=== PATIENT | female | born 1955 | race American Indian/Alaskan Native ===

== ENCOUNTER 2018-05-04 03:30 | Inpatient (IN) | payer MEDICARE, OTHER ==
--- NOTE | 2018-05-04 03:51 | Emergency Department Report ---
ED Altered Mental Status HPI - General Stated Complaint: HYPOGLYCEMIA Time Seen by Provider: 05/04/18 03:46 - History of Present Illness Initial Comments: 62-year-old female presents to ED from [facility] for altered mental status. senior living staff state approximately one hour prior to calling EMS and they were fighting with the patient to wear her CPAP. Finally they gave up and did not place patient on CPAP machine because she was so combative. They later found her laying on the floor, unresponsive. Upon EMS arrival, the patient had a blood sugar of 41, D50 was given. Patient was also bradycardic into the 40s, atropine 0.5 mg was given. Also Narcan was administered. Patient did awake somewhat. Currently combative with nurses, but remains lethargic. Cards: [facility] Cardiology Nephrology: Dr Shaniqua MEDINA Complaint: altered mental status -: This morning Severity: severe Treatments Prior to Arrival: glucose, other pre-hosp med (narcan, atropine) - Related Data Allergies Allergy/AdvReac Type Severity Reaction Status Date / Time ciprofloxacin [From Cipro] Allergy Unknown Verified 05/04/18 03:40 prazosin [From Minipress] Allergy Unknown Verified 05/04/18 03:40 ED Review of Systems ROS: Stated complaint: HYPOGLYCEMIA Other details as noted in HPI Comment: Unobtainable due to pts medical conditions (altered mental status) ED Physical Exam - General General appearance: lethargic - Head Head exam: Present: atraumatic, normocephalic - ENT ENT exam: Present: mucous membranes moist - Neck Neck exam: Present: normal inspection - Respiratory Respiratory exam: Present: normal lung sounds bilaterally. Absent: respiratory distress - Cardiovascular Cardiovascular Exam: Present: normal rhythm, bradycardia - GI/Abdominal GI/Abdominal exam: Present: soft. Absent: distended, tenderness - Extremities Exam Extremities exam: Present: normal inspection - Neurological Exam Neurological exam: Present: other (lethargic, awakens to painful stimuli an is then able to tell me her name, moves all extremities, does not fully follow commands) - Psychiatric Psychiatric exam: Present: agitated - Skin Skin exam: Present: warm, dry, intact, normal color ED Course Vital Signs 05/04/18 05/04/18 05/04/18 03:41 03:58 04:16 Temperature 98.5 F Pulse Rate 48 L 55 L Respiratory 20 10 L 14 Rate Blood Pressure 103/58 O2 Sat by Pulse 96 96 96 Oximetry 05/04/18 04:30 Temperature Pulse Rate 41 L Respiratory 24 Rate Blood Pressure O2 Sat by Pulse 100 Oximetry - Reevaluation(s) Reevaluation #1: 05/04/18 04:07 Daughter at bedside. States pt has history of multiple falls and passing out. Also states over the last week whenever she has visited pt at the skilled nursing, pt has been very lethargic, barely able to open her eyes. - Consultations Consultation #1: 05/04/18 06:53 Spoke w/ Dr Sims, Cardiology. States if blood pressure remains stable, then can observe. If blood pressure drops, will need to start dopamine. BP currently 118/70. - Lab Data Result diagrams: 05/04/18 04:07 05/04/18 04:07 Lab Results 05/04/18 05/04/18 05/04/18 Range/Units 04:01 04:07 04:07 WBC 5.9 (4.5-11.0) K/mm3 RBC 3.22 L (3.65-5.03) M/mm3 Hgb 9.4 L (10.1-14.3) gm/dl Hct 28.7 L (30.3-42.9) % MCV 89 (79-97) fl MCH 29 (28-32) pg MCHC 33 (30-34) % RDW 17.0 H (13.2-15.2) % Plt Count 230 (140-440) K/mm3 Add Manual Diff Complete Total Counted 100 Seg Neuts % (Manual) 77.0 H (40.0-70.0) % Band Neutrophils % 1.0 % Lymphocytes % (Manual) 19.0 (13.4-35.0) % Reactive Lymphs % (Man) 0 % Monocytes % (Manual) 3.0 (0.0-7.3) % Eosinophils % (Manual) 0 (0.0-4.3) % Basophils % (Manual) 0 (0.0-1.8) % Metamyelocytes % 0 % Myelocytes % 0 % Promyelocytes % 0 % Blast Cells % 0 % Nucleated RBC % Not Reportable Seg Neutrophils # Man 4.5 (1.8-7.7) K/mm3 Band Neutrophils # 0.1 K/mm3 Lymphocytes # (Manual) 1.1 L (1.2-5.4) K/mm3 Abs React Lymphs (Man) 0.0 K/mm3 Monocytes # (Manual) 0.2 (0.0-0.8) K/mm3 Eosinophils # (Manual) 0.0 (0.0-0.4) K/mm3 Basophils # (Manual) 0.0 (0.0-0.1) K/mm3 Metamyelocytes # 0.0 K/mm3 Myelocytes # 0.0 K/mm3 Promyelocytes # 0.0 K/mm3 Blast Cells # 0.0 K/mm3 WBC Morphology Not Reportable Hypersegmented Neuts Not Reportable Hyposegmented Neuts Not Reportable Hypogranular Neuts Not Reportable Smudge Cells Not Reportable Toxic Granulation Not Reportable Toxic Vacuolation Not Reportable Dohle Bodies Not Reportable Pelger-Huet Anomaly Not Reportable Manish Rods Not Reportable Platelet Estimate Appears normal Clumped Platelets Not Reportable Plt Clumps, EDTA Not Reportable Large Platelets Not Reportable Giant Platelets Not Reportable Platelet Satelliting Not Reportable Plt Morphology Comment Not Reportable RBC Morphology Not Reportable Dimorphic RBCs Not Reportable Polychromasia Not Reportable Hypochromasia Not Reportable Poikilocytosis Not Reportable Anisocytosis 1+ Microcytosis Not Reportable Macrocytosis Not Reportable Spherocytes Not Reportable Pappenheimer Bodies Not Reportable Sickle Cells Not Reportable Target Cells Not Reportable Tear Drop Cells Not Reportable Ovalocytes Not Reportable Helmet Cells Not Reportable Stanley-Landusky Bodies Not Reportable Chandler Rings Not Reportable [place] Cells Not Reportable Bite Cells Not Reportable Crenated Cell Not Reportable Elliptocytes Not Reportable Acanthocytes (Spur) Not Reportable Rouleaux Not Reportable Hemoglobin C Crystals Not Reportable Schistocytes Not Reportable Malaria parasites Not Reportable Margarito Bodies Not Reportable Hem Pathologist Commnt No PT 15.7 H (12.2-14.9) Sec. INR 1.17 H (0.87-1.13) APTT 38.2 H (24.2-36.6) Sec. POC ABG pH 7.320 L (7.35-7.45) POC ABG pCO2 55.4 H (35-45) POC ABG pO2 96 (80-105) POC ABG HCO3 28.5 POC ABG Total CO2 30 POC ABG O2 Sat 97 POC ABG Base Excess 2 FiO2 28 % Sodium (137-145) mmol/L Potassium (3.6-5.0) mmol/L Chloride (98-107) mmol/L Carbon Dioxide (22-30) mmol/L Anion Gap mmol/L BUN (7-17) mg/dL Creatinine (0.7-1.2) mg/dL Estimated GFR ml/min BUN/Creatinine Ratio % Glucose (65-100) mg/dL Lactic Acid (0.7-2.0) mmol/L Calcium (8.4-10.2) mg/dL Total Bilirubin (0.1-1.2) mg/dL AST (5-40) units/L ALT (7-56) units/L Alkaline Phosphatase (35-129) units/L Troponin T (0.00-0.029) ng/mL Total Protein (6.3-8.2) g/dL Albumin (3.9-5) g/dL Albumin/Globulin Ratio % Urine Color (Yellow) Urine Turbidity (Clear) Urine pH (5.0-7.0) Ur Specific [place] (1.003-1.030) Urine Protein (Negative) mg/dL Urine Glucose (UA) (Negative) mg/dL Urine Ketones (Negative) mg/dL Urine Blood (Negative) Urine Nitrite (Negative) Urine Bilirubin (Negative) Urine Urobilinogen (<2.0) mg/dL Ur Leukocyte Esterase (Negative) Urine WBC (Auto) (0.0-6.0) /HPF Urine RBC (Auto) (0.0-6.0) /HPF Urine Bacteria (Auto) (Negative) /HPF Urine WBC Clumps /HPF Amorphous Crystals Hyaline Casts /LPF Urine Mucus /HPF 05/04/18 05/04/18 05/04/18 Range/Units 04:07 04:07 04:09 WBC (4.5-11.0) K/mm3 RBC (3.65-5.03) M/mm3 Hgb (10.1-14.3) gm/dl Hct (30.3-42.9) % MCV (79-97) fl MCH (28-32) pg MCHC (30-34) % RDW (13.2-15.2) % Plt Count (140-440) K/mm3 Add Manual Diff Total Counted Seg Neuts % (Manual) (40.0-70.0) % Band Neutrophils % % Lymphocytes % (Manual) (13.4-35.0) % Reactive Lymphs % (Man) % Monocytes % (Manual) (0.0-7.3) % Eosinophils % (Manual) (0.0-4.3) % Basophils % (Manual) (0.0-1.8) % Metamyelocytes % % Myelocytes % % Promyelocytes % % Blast Cells % % Nucleated RBC % Seg Neutrophils # Man (1.8-7.7) K/mm3 Band Neutrophils # K/mm3 Lymphocytes # (Manual) (1.2-5.4) K/mm3 Abs React Lymphs (Man) K/mm3 Monocytes # (Manual) (0.0-0.8) K/mm3 Eosinophils # (Manual) (0.0-0.4) K/mm3 Basophils # (Manual) (0.0-0.1) K/mm3 Metamyelocytes # K/mm3 Myelocytes # K/mm3 Promyelocytes # K/mm3 Blast Cells # K/mm3 WBC Morphology Hypersegmented Neuts Hyposegmented Neuts Hypogranular Neuts Smudge Cells Toxic Granulation Toxic Vacuolation Dohle Bodies Pelger-Huet Anomaly Manish Rods Platelet Estimate Clumped Platelets Plt Clumps, EDTA Large Platelets Giant Platelets Platelet Satelliting Plt Morphology Comment RBC Morphology Dimorphic RBCs Polychromasia Hypochromasia Poikilocytosis Anisocytosis Microcytosis Macrocytosis Spherocytes Pappenheimer Bodies Sickle Cells Target Cells Tear Drop Cells Ovalocytes Helmet Cells Stanley-Landusky Bodies Chandler Rings [place] Cells Bite Cells Crenated Cell Elliptocytes Acanthocytes (Spur) Rouleaux Hemoglobin C Crystals Schistocytes Malaria parasites Margarito Bodies Hem Pathologist Commnt PT (12.2-14.9) Sec. INR (0.87-1.13) APTT (24.2-36.6) Sec. POC ABG pH (7.35-7.45) POC ABG pCO2 (35-45) POC ABG pO2 (80-105) POC ABG HCO3 POC ABG Total CO2 POC ABG O2 Sat POC ABG Base Excess FiO2 % Sodium 139 (137-145) mmol/L Potassium 4.9 (3.6-5.0) mmol/L Chloride 98.8 (98-107) mmol/L Carbon Dioxide 26 (22-30) mmol/L Anion Gap 19 mmol/L BUN 71 H (7-17) mg/dL Creatinine 4.3 H (0.7-1.2) mg/dL Estimated GFR 13 ml/min BUN/Creatinine Ratio 17 % Glucose 124 H (65-100) mg/dL Lactic Acid 1.00 (0.7-2.0) mmol/L Calcium 10.1 (8.4-10.2) mg/dL Total Bilirubin 0.20 (0.1-1.2) mg/dL AST 27 (5-40) units/L ALT 29 (7-56) units/L Alkaline Phosphatase 202 H (35-129) units/L Troponin T 0.093 H (0.00-0.029) ng/mL Total Protein 6.8 (6.3-8.2) g/dL Albumin 2.9 L (3.9-5) g/dL Albumin/Globulin Ratio 0.7 % Urine Color (Yellow) Urine Turbidity (Clear) Urine pH (5.0-7.0) Ur Specific [place] (1.003-1.030) Urine Protein (Negative) mg/dL Urine Glucose (UA) (Negative) mg/dL Urine Ketones (Negative) mg/dL Urine Blood (Negative) Urine Nitrite (Negative) Urine Bilirubin (Negative) Urine Urobilinogen (<2.0) mg/dL Ur Leukocyte Esterase (Negative) Urine WBC (Auto) (0.0-6.0) /HPF Urine RBC (Auto) (0.0-6.0) /HPF Urine Bacteria (Auto) (Negative) /HPF Urine WBC Clumps /HPF Amorphous Crystals Hyaline Casts /LPF Urine Mucus /HPF 05/04/18 05/04/18 05/04/18 Range/Units 05:21 05:50 05:50 WBC (4.5-11.0) K/mm3 RBC (3.65-5.03) M/mm3 Hgb (10.1-14.3) gm/dl Hct (30.3-42.9) % MCV (79-97) fl MCH (28-32) pg MCHC (30-34) % RDW (13.2-15.2) % Plt Count (140-440) K/mm3 Add Manual Diff Total Counted Seg Neuts % (Manual) (40.0-70.0) % Band Neutrophils % % Lymphocytes % (Manual) (13.4-35.0) % Reactive Lymphs % (Man) % Monocytes % (Manual) (0.0-7.3) % Eosinophils % (Manual) (0.0-4.3) % Basophils % (Manual) (0.0-1.8) % Metamyelocytes % % Myelocytes % % Promyelocytes % % Blast Cells % % Nucleated RBC % Seg Neutrophils # Man (1.8-7.7) K/mm3 Band Neutrophils # K/mm3 Lymphocytes # (Manual) (1.2-5.4) K/mm3 Abs React Lymphs (Man) K/mm3 Monocytes # (Manual) (0.0-0.8) K/mm3 Eosinophils # (Manual) (0.0-0.4) K/mm3 Basophils # (Manual) (0.0-0.1) K/mm3 Metamyelocytes # K/mm3 Myelocytes # K/mm3 Promyelocytes # K/mm3 Blast Cells # K/mm3 WBC Morphology Hypersegmented Neuts Hyposegmented Neuts Hypogranular Neuts Smudge Cells Toxic Granulation Toxic Vacuolation Dohle Bodies Pelger-Huet Anomaly Manish Rods Platelet Estimate Clumped Platelets Plt Clumps, EDTA Large Platelets Giant Platelets Platelet Satelliting Plt Morphology Comment RBC Morphology Dimorphic RBCs Polychromasia Hypochromasia Poikilocytosis Anisocytosis Microcytosis Macrocytosis Spherocytes Pappenheimer Bodies Sickle Cells Target Cells Tear Drop Cells Ovalocytes Helmet Cells Stanley-Landusky Bodies Chandler Rings [place] Cells Bite Cells Crenated Cell Elliptocytes Acanthocytes (Spur) Rouleaux Hemoglobin C Crystals Schistocytes Malaria parasites Margarito Bodies Hem Pathologist Commnt PT (12.2-14.9) Sec. INR (0.87-1.13) APTT (24.2-36.6) Sec. POC ABG pH (7.35-7.45) POC ABG pCO2 (35-45) POC ABG pO2 (80-105) POC ABG HCO3 POC ABG Total CO2 POC ABG O2 Sat POC ABG Base Excess FiO2 % Sodium (137-145) mmol/L Potassium (3.6-5.0) mmol/L Chloride (98-107) mmol/L Carbon Dioxide (22-30) mmol/L Anion Gap mmol/L BUN (7-17) mg/dL Creatinine (0.7-1.2) mg/dL Estimated GFR ml/min BUN/Creatinine Ratio % Glucose (65-100) mg/dL Lactic Acid 0.70 (0.7-2.0) mmol/L Calcium (8.4-10.2) mg/dL Total Bilirubin (0.1-1.2) mg/dL AST (5-40) units/L ALT (7-56) units/L Alkaline Phosphatase (35-129) units/L Troponin T 0.072 H D (0.00-0.029) ng/mL Total Protein (6.3-8.2) g/dL Albumin (3.9-5) g/dL Albumin/Globulin Ratio % Urine Color Yellow (Yellow) Urine Turbidity Cloudy (Clear) Urine pH 5.0 (5.0-7.0) Ur Specific [place] 1.009 (1.003-1.030) Urine Protein <15 mg/dl (Negative) mg/dL Urine Glucose (UA) Neg (Negative) mg/dL Urine Ketones Neg (Negative) mg/dL Urine Blood Neg (Negative) Urine Nitrite Neg (Negative) Urine Bilirubin Neg (Negative) Urine Urobilinogen < 2.0 (<2.0) mg/dL Ur Leukocyte Esterase Mod (Negative) Urine WBC (Auto) 64.0 H (0.0-6.0) /HPF Urine RBC (Auto) 5.0 (0.0-6.0) /HPF Urine Bacteria (Auto) 3+ (Negative) /HPF Urine WBC Clumps 2+ /HPF Amorphous Crystals 3+ Hyaline Casts 3 /LPF Urine Mucus Few /HPF - EKG Data -: EKG Interpreted by Ga EKG shows normal: sinus rhythm, ST-T waves Rate: normal Interpretation: other (LBBB, prolonged QT) - Radiology Data Radiology results: report reviewed, image reviewed - Medical Decision Making 62 yo female presents to ED with altered mental status. Patient is currently on BiPAP, remains sleepy, but is arousable with simple stimulus instead of painful stimuli, which was required when patient initially arrived. CT head negative. Labs show no elevation in WBCs. Patient is afebrile. Lactic acid normal. Chest x-ray shows possible right upper lobe infiltrate. Daughter reports patie nt has stage IV kidney disease, labs show BUN of 71, creatinine of 4.3. Possible acute on chronic renal failure. IV fluids given. Patient has been bradycardic with heart rate in the 40s, and atropine given and once by EMS, twice here in the ED. Daughter states patient has had episodes of bradycardia in the past when she has been hospitalized. EKG shows left bundle branch block and no ST changes. Troponin mildly elevated at 0.09, however this could also be due to the patient's renal function. Systolic blood pressure has been stable in the 110s despite bradycardia. - Differential Diagnosis CVA, CO2 narcosis, infection, ACS Critical Care Time: Yes Critical care time in (mins) excluding proc time.: 60 Critical care attestation.: If time is entered above; I have spent that time in minutes in the direct care of this critically ill patient, excluding procedure time. Critical Care Time: 60 minutes ED Disposition Clinical Impression: Altered mental status, Hypoglycemia, Bradycardia, UTI (urinary tract infection) Disposition: OP ADMIT IP TO THIS HOSP Is pt being admited?: Yes Condition: Stable Referrals: ROSALINA IRWIN MD [Primary Care Provider] - 3-5 Days
[2018-05-04] MEDS ORDERED: NACL 0.9% 1000 ML 1,000 ML IV ONE (03:59)
[2018-05-04] MEDS ORDERED: NARCAN 0.4 MG/1 ML IV ONE (04:06)
[2018-05-04] MEDS ORDERED: ATROPINE 0.1% (CARDIAC) IV ONE ×3 (04:06→06:40)
[2018-05-04] MEDS ORDERED: ATROPINE 0.1% (CARDIAC) ONE (04:10)
[2018-05-04] MEDS ORDERED: NARCAN 0.4 MG/1 ML ONE (04:10)
[2018-05-04 04:21] LABS: Hematocrit 28.7 % (30.3-42.9); Hemoglobin 9.4 gm/dl (10.1-14.3); Mean Corpuscular HGB Conc 33 % (30-34); Mean Corpuscular Volume 89 fl (79-97); Platelet Count 230 K/mm3 (140-440); Red Blood Count 3.22 M/mm3 (3.65-5.03)
[2018-05-04 04:33] LABS: INR 1.17 (0.87-1.13)
[2018-05-04 04:34] LABS: Partial Thromboplastin Time 38.2 Sec. (24.2-36.6)
[2018-05-04 04:44] LABS: Albumin 2.9 g/dL (3.9-5); Calcium 10.1 mg/dL (8.4-10.2)
--- NOTE | 2018-05-04 05:15 | Cat Scan Report ---
PROCEDURE: CT HEAD/BRAIN WO CON TECHNIQUE: Computerized tomography of the head was performed without contrast material. CT DOSE LENGTH PRODUCT: mGycm HISTORY: ams COMPARISONS: None . FINDINGS: Skull and scalp: There is an old left temporal craniotomy defect. . Paranasal sinuses: Normal . Ventricles and subarachnoid spaces: There is central and cortical atrophy appropriate for the patien t's age. . Cerebrum: There is an isodense rounded mass in the suprasellar region measuring 2.5 x 2 cm. This cou ld be a pituitary adenoma, a meningioma or other intracranial mass lesion. Aneurysm not excluded. Cor relation with contrast-enhanced MRI suggested. . Cerebellum and brainstem: No evidence of hemorrhage, acute infarction or mass . Vasculature: There is chronic deep white matter ischemic gliosis. . IMPRESSION: There is no acute hemorrhage, edema, mass effect or midline shift. . There is an old left temporal craniotomy defect. . There is central and cortical atrophy appropriate for the patient's age. . There is an isodense rounded mass in the suprasellar region measuring 2.5 x 2 cm. This could be a pit uitary adenoma, a meningioma or other intracranial mass lesion. Aneurysm not excluded. Correlation wi contrast-enhanced MRI suggested. . No evidence of hemorrhage, acute infarction or mass . There is chronic deep white matter ischemic gliosis. This document is electronically signed by Jose De Jesus Aldrich MD., May 04 2018 05:13:42 AM ET
--- NOTE | 2018-05-04 05:46 | XRay Report ---
PROCEDURE: XR CHEST 1V AP TECHNIQUE: A portable semiupright view of the chest was submitted. HISTORY: ams COMPARISONS: None FINDINGS: The heart is mild to moderately enlarged. The lungs are not congested. There are localized increased markings in the right upper lobe. Pleural fluid is not seen. The skeletal structures are well-maintai tawnya. IMPRESSION: Cardiomegaly. Localized increased markings in the right upper lobe. Whether this is on acute or chron ic basis is uncertain.. This document is electronically signed by Oscar Padilla MD., May 04 2018 05:43:40 AM ET
[2018-05-04 05:49] LABS: Amorphous Crystals,Urine 3+; Bacteria,Urine 3+ /HPF (Negative); Bilirubin,Urine NEG (Negative); Blood,Urine NEG (Negative); Color,Urine Yellow (Yellow); Hyaline Casts,Urine 3 /LPF; Mucus,Urine FEW /HPF; Protein,Urine <15 mg/dL mg/dL (Negative); Urobilinogen,Urine < 2.0 mg/dL (<2.0)
[2018-05-04] MEDS ORDERED: ROCEPHIN/NS 1 GM/50 ML 1 GM/50 ML BAG IV ONE (05:53)
[2018-05-04 06:22] LABS: Anisocytosis 1+; Band Neutrophils # (Manual) 0.1 K/mm3; Basophils % (Manual) 0 % (0.0-1.8); Eosinophils % (Manual) 0 % (0.0-4.3); Total Cells Counted 100
[2018-05-04 07:28] LABS: Chol/HDL Ratio 3.51 %
--- NOTE | 2018-05-04 08:47 | History and Physical Report ---
History of Present Illness Date of examination: 05/04/18 Date of admission: 05/04/18 06:05 Chief complaint: AMS History of present illness: Patient is a 62 year old woman from [facility] with h/o dilated nonischemic cardiomyopathy, pituitary tumor, diabetes mellitus type 2, hypertension, hyperlipidemia, chronic renal disease, was brought to the ER by EMS after she was found on the floor unresponsive. On EMS arrival she was said to be hypoglycemic with a blood sugar of 41. She was also noted with significant bradycardia, rate in the low 40s, and was given atropine. Home medications list she is taking carvediolol 12.5mg twice a day. A 12 lead ECG shows sinus rhythm with a left bundle branch block. Chest x-ray shows cardiomegaly with pulmonary edema. Head CT scan reports no acute intracranial process. Initial labs shows a creatinine of 4.3, TSH 9, elevated trop, and UA suggestive for UTI. Patient is getting admitted to ICU for further evaluation and management. Review of System: Unobtainable, due to altered mental status. Past History Past Medical History: diabetes, hypertension, hyperlipidemia, hypothyroidism, other (CKD, pituitary tumor) Past Surgical History: Other (multiple pituitary surgery, cardiac cath, lump removal) Social history: smoking (quit smoking at least 20 years ago), other (lives in a shelter). denies: alcohol abuse, IV drug use Family history: diabetes, hypertension Medications and Allergies Allergies Allergy/AdvReac Type Severity Reaction Status Date / Time ciprofloxacin [From Cipro] Allergy Unknown Verified 05/04/18 03:40 prazosin [From Minipress] Allergy Unknown Verified 05/04/18 03:40 Home Medications Medication Instructions Recorded Confirmed Last Taken Type Ascorbic Acid [Vitamin C] 500 mg PO DAILY 05/04/18 05/04/18 Unknown History Aspirin [Aspirin BABY CHEW TAB] 81 mg PO QDAY 05/04/18 05/04/18 Unknown History AtorvaSTATin [Lipitor] 20 mg PO QHS 05/04/18 05/04/18 Unknown History Calcitriol [Rocaltrol] 0.25 mcg PO DAILY 05/04/18 05/04/18 Unknown History Carvedilol [Coreg] 12.5 mg PO BIDWM 05/04/18 05/04/18 Unknown History Citalopram Hydrobromide [Celexa] 40 mg PO QDAY 05/04/18 05/04/18 Unknown History Ergocalciferol [Vitamin D2] 1 cap PO QWEEK 05/04/18 05/04/18 Unknown History Ferrous Sulfate [Iron] 325 mg PO QAM 05/04/18 05/04/18 Unknown History Folic Acid [Folvite] 1 mg PO QDAY 05/04/18 05/04/18 Unknown History Furosemide [Lasix] 60 mg PO BID 05/04/18 05/04/18 Unknown History Hydrocortisone [Cortef TAB] 20 mg PO DAILY 05/04/18 05/04/18 Unknown History Lispro Insulin [Humalog] 1 dose SUB-Q ACHS 05/04/18 05/04/18 Unknown History Multivitamin Tab W-MINERAL 1 each PO DAILY 05/04/18 05/04/18 Unknown History [Multiple Vitamin/Mineral (Theragran M)] OLANZapine [Zyprexa] 5 mg PO QPM 05/04/18 05/04/18 Unknown History OLANzapine ZYDIS [ZyPREXA Zydis] 5 mg PO DAILY 05/04/18 05/04/18 Unknown History Potassium Chloride [Klor-Con 10] 20 meq PO QDAY 05/04/18 05/04/18 Unknown History Quetiapine Fumarate [Seroquel] 300 mg PO QPM 05/04/18 05/04/18 Unknown History amLODIPine [Norvasc] 10 mg PO DAILY 05/04/18 05/04/18 Unknown History glipiZIDE [Glipizide] 5 mg PO BID 05/04/18 05/04/18 Unknown History traZODone [Desyrel] 50 mg PO QHS 05/04/18 05/04/18 Unknown History Active Meds: Active Medications Aspirin (Aspirin) 325 mg PO QDAY [facility] Atorvastatin Calcium (Lipitor) 40 mg PO QHS [facility] Exam - Physical Exam Narrative exam: GENERAL: well-developed obese female lying on bed with a Ventimask. HEENT: Normocephalic. Atraumatic. No conjunctival congestion or icterus. Patient has dry mucous membranes. NECK: Supple. Trachea midline. CHEST/LUNGS: Clear to auscultated bilaterally, breathing nonlabored on Ventima sk. No wheezes crackles or rhonchi. HEART/CARDIOVASCULAR: Bradycardic. S1 and S2 positive. ABDOMEN: Abdomen is soft, nontender. Patient has normal bowel sounds. SKIN: There is no rash. Warm and dry. NEURO: Unable to Follow command. Very lethargic MUSCULOSKELETAL: No joint effusion or tenderness. EXTRIMITY: No edema, no cyanosis or clubbing. PSYCH: Unable to assess - Constitutional Vitals: Temp Pulse Resp BP Pulse Ox 98.2 F 41 L 12 118/72 97 05/04/18 08:39 05/04/18 08:30 05/04/18 08:30 05/04/18 08:30 05/04/18 08:30 Results - Labs CBC & Chem 7: 05/04/18 04:07 05/04/18 04:07 Labs: Abnormal lab results 05/04/18 05/04/18 05/04/18 Range/Units 04:01 04:07 04:07 RBC 3.22 L (3.65-5.03) M/mm3 Hgb 9.4 L (10.1-14.3) gm/dl Hct 28.7 L (30.3-42.9) % RDW 17.0 H (13.2-15.2) % Seg Neuts % (Manual) 77.0 H (40.0-70.0) % Lymphocytes # (Manual) 1.1 L (1.2-5.4) K/mm3 PT 15.7 H (12.2-14.9) Sec. INR 1.17 H (0.87-1.13) APTT 38.2 H (24.2-36.6) Sec. POC ABG pH 7.320 L (7.35-7.45) POC ABG pCO2 55.4 H (35-45) BUN (7-17) mg/dL Creatinine (0.7-1.2) mg/dL Glucose (65-100) mg/dL Alkaline Phosphatase (35-129) units/L Troponin T (0.00-0.029) ng/mL Albumin (3.9-5) g/dL HDL Cholesterol (40-59) mg/dL Urine WBC (Auto) (0.0-6.0) /HPF 05/04/18 05/04/18 05/04/18 Range/Units 04:07 04:07 05:21 RBC (3.65-5.03) M/mm3 Hgb (10.1-14.3) gm/dl Hct (30.3-42.9) % RDW (13.2-15.2) % Seg Neuts % (Manual) (40.0-70.0) % Lymphocytes # (Manual) (1.2-5.4) K/mm3 PT (12.2-14.9) Sec. INR (0.87-1.13) APTT (24.2-36.6) Sec. POC ABG pH (7.35-7.45) POC ABG pCO2 (35-45) BUN 71 H (7-17) mg/dL Creatinine 4.3 H (0.7-1.2) mg/dL Glucose 124 H (65-100) mg/dL Alkaline Phosphatase 202 H (35-129) units/L Troponin T 0.093 H (0.00-0.029) ng/mL Albumin 2.9 L (3.9-5) g/dL HDL Cholesterol (40-59) mg/dL Urine WBC (Auto) 64.0 H (0.0-6.0) /HPF // Range/Units 05:50 RBC (3.65-5.03) M/mm3 Hgb (10.1-14.3) gm/dl Hct (30.3-42.9) % RDW (13.2-15.2) % Seg Neuts % (Manual) (40.0-70.0) % Lymphocytes # (Manual) (1.2-5.4) K/mm3 PT (12.2-14.9) Sec. INR (0.87-1.13) APTT (24.2-36.6) Sec. POC ABG pH (7.35-7.45) POC ABG pCO2 (35-45) BUN (7-17) mg/dL Creatinine (0.7-1.2) mg/dL Glucose (65-100) mg/dL Alkaline Phosphatase (35-129) units/L Troponin T 0.072 H D (0.00-0.029) ng/mL Albumin (3.9-5) g/dL HDL Cholesterol 33 L (40-59) mg/dL Urine WBC (Auto) (0.0-6.0) /HPF - Imaging and Cardiology Chest x-ray: report reviewed CT Scan - head: report reviewed Assessment and Plan Aletered mental status - reason for admission - likley from hypoglycemia Sinus bradycardia, hemodynamically stable - no need for intervention, per cardiology - hold BB and non-dihydropyridine CCB (patient was on coreg at the [facility]) - Check TSH, T4, Continue to monitor on tele Severe hypothyroidosm - start on iv synthroid with steroid dose Recurrent episodes of syncope - Patient has a loop recorder for that reason Pituitary tumor s/p multiple brain surgery and radiation therapy - CT head Acute on chronic renal failure - monitor BMP UTI with sepsis - + UA with worsening renal function and alteration of mental status - cont abx, cx Elevated troponin/NSTEMI 2 ?? - trens trop, 2d echo - cont aspirin, statin -Cardiology consulted
[2018-05-04] MEDS ORDERED: D5NS 1,000 ML IV SCH (09:00)
--- NOTE | 2018-05-04 09:27 | Consultation ---
History of Present Illness Consult date: 05/04/18 Requesting physician: JOSIE SIERRA History of present illness: Patient is a 62 year old woman from [facility] with h/o dilated nonischemic cardiomyopathy, pituitary tumor, diabetes mellitus type 2, hypertension, hyperlipidemia, chronic renal disease, was brought to the ER by EMS after she was found on the floor unresponsive. On EMS arrival she was said to be hypoglycemic with a blood sugar of 41. She was also noted with significant br adycardia, rate in the low 40s, and was given atropine. Home medications list she is taking carvediolol 12.5mg twice a day. A 12 lead ECG shows sinus rhythm with a left bundle branch block. Chest x-ray shows cardiomegaly with pulmonary edema. Head CT scan reports no acute intracranial process. Initial labs shows a creatinine of 4.3, TSH 9, elevated trop, and UA suggestive for UTI. Patient is getting admitted to ICU for further evaluation and management. I have been consulted for critical care management. Documented history as obtained from the medical records, patient is encephaloapthic and unable to provide any information. She is currently on BIPAP, IPAP 16, EPAP 6, with tidal volumes at about 250, discussed with RT readjustment of settings to allow for tidal volumes of at least 350 and minute ventilation of 11. Patient was seen and examined in the ED. Vitals, labs, medications, chart and imaging reviewed. Discussed with ED physician and auto washer of System: Unobtainable, due to altered mental status. Past History Past Medical History: diabetes, hypertension, hyperlipidemia, hypothyroidism, other (CKD, pituitary tumor) Past Surgical History: Other (multiple pituitary surgery, cardiac cath, lump removal) Social history: smoking (quit smoking at least 20 years ago), other (lives in a retirement). denies: alcohol abuse, IV drug use Family history: diabetes, hypertension Medications and Allergies Allergies Allergy/AdvReac Type Severity Reaction Status Date / Time ciprofloxacin [From Cipro] Allergy Unknown Verified 05/04/18 03:40 prazosin [From Minipress] Allergy Unknown Verified 05/04/18 03:40 Home Medications Medication Instructions Recorded Confirmed Last Taken Type Ascorbic Acid [Vitamin C] 500 mg PO DAILY 05/04/18 05/04/18 Unknown History Aspirin [Aspirin BABY CHEW TAB] 81 mg PO QDAY 05/04/18 05/04/18 Unknown History AtorvaSTATin [Lipitor] 20 mg PO QHS 05/04/18 05/04/18 Unknown History Calcitriol [Rocaltrol] 0.25 mcg PO DAILY 05/04/18 05/04/18 Unknown History Citalopram Hydrobromide [Celexa] 40 mg PO QDAY 05/04/18 05/04/18 Unknown History Ergocalciferol [Vitamin D2] 1 cap PO QWEEK 05/04/18 05/04/18 Unknown History Ferrous Sulfate [Iron] 325 mg PO QAM 05/04/18 05/04/18 Unknown History Folic Acid [Folvite] 1 mg PO QDAY 05/04/18 05/04/18 Unknown History Hydrocortisone [Cortef TAB] 20 mg PO DAILY 05/04/18 05/04/18 Unknown History Multivitamin Tab W-MINERAL 1 each PO DAILY 05/04/18 05/04/18 Unknown History [Multiple Vitamin/Mineral (Theragran M)] OLANZapine [Zyprexa] 5 mg PO QPM 05/04/18 05/04/18 Unknown History Quetiapine Fumarate [Seroquel] 300 mg PO QPM 05/04/18 05/04/18 Unknown History Amoxicillin/Potassium Clav 1 each PO BID #6 tablet 05/07/18 Unknown Rx [Augmentin 875-125 Tablet] Levothyroxine [Synthroid] 75 mcg PO DAILY@0600 #30 tablet 05/07/18 Unknown Rx Lispro Insulin [Humalog] See Protocol SQ QACHS 30 Days vial 05/07/18 Unknown Rx Lispro Insulin [Humalog] See Protocol SUB-Q ACHS #30 units 05/07/18 Unknown Rx Active Meds: Active Medications Aspirin (Aspirin) 325 mg PO QDAY [facility] Atorvastatin Calcium (Lipitor) 40 mg PO QHS [facility] Dextrose/Sodium Chloride (D5ns) 1,000 mls @ 75 mls/hr IV DIRECT [facility] Review of Systems ROS unobtainable: due to mental status Physical Examination Vital signs: Vital Signs Pulse Resp 142 H 12 05/04/18 03:28 05/04/18 03:28 GENERAL: well-developed obese female lying on bed on BIPAP HEENT: Normocephalic. Atraumatic. No conjunctival congestion or icterus. NIGEL NECK: Supple. Trachea midline. CHEST/LUNGS: Clear to auscultated bilaterally, breathing non labored on BIPAPNo wheezes crackles or rhonchi. HEART/CARDIOVASCULAR: Bradycardic. S1 and S2 positive. ABDOMEN: Abdomen is soft, nontender. Patient has normal bowel sounds. SKIN: There is no rash. Warm and dry. NEURO: Unable to follow command. Very lethargic Minimally responsive to painful stimuli MUSCULOSKELETAL: No joint effusion or tenderness. EXTRIMITY: No edema, no cyanosis or clubbing. PSYCH: Unable to assess Results - Laboratory Findings CBC and BMP: 05/07/18 13:31 05/07/18 13:31 ABG POC ABG pH 7.320 (7.35-7.45) L 05/04/18 04:01 POC ABG pCO2 55.4 (35-45) H 05/04/18 04:01 POC ABG pO2 96 (80-105) 05/04/18 04:01 POC ABG HCO3 28.5 05/04/18 04:01 POC ABG Total CO2 30 05/04/18 04:01 POC ABG O2 Sat 97 05/04/18 04:01 PT/INR, D-dimer PT 15.7 Sec. (12.2-14.9) H 05/04/18 04:07 INR 1.17 (0.87-1.13) H 05/04/18 04:07 Abnormal lab findings: Abnormal Labs 05/04/18 05/04/18 05/04/18 04:01 04:07 04:07 RBC 3.22 L Hgb 9.4 L Hct 28.7 L RDW 17.0 H Seg Neuts % (Manual) 77.0 H Lymphocytes # (Manual) 1.1 L PT 15.7 H INR 1.17 H APTT 38.2 H POC ABG pH 7.320 L POC ABG pCO2 55.4 H BUN Creatinine Glucose Alkaline Phosphatase Troponin T Albumin HDL Cholesterol Urine WBC (Auto) 05/04/18 05/04/18 05/04/18 04:07 04:07 05:21 RBC Hgb Hct RDW Seg Neuts % (Manual) Lymphocytes # (Manual) PT INR APTT POC ABG pH POC ABG pCO2 BUN 71 H Creatinine 4.3 H Glucose 124 H Alkaline Phosphatase 202 H Troponin T 0.093 H Albumin 2.9 L HDL Cholesterol Urine WBC (Auto) 64.0 H 05/04/18 05:50 RBC Hgb Hct RDW Seg Neuts % (Manual) Lymphocytes # (Manual) PT INR APTT POC ABG pH POC ABG pCO2 BUN Creatinine Glucose Alkaline Phosphatase Troponin T 0.072 H D Albumin HDL Cholesterol 33 L Urine WBC (Auto) Assessment and Plan Acute hypercapnic respiratory failure on NIPPV Altered mental status Sinus bradycardia Severe hypothyroidism Hypoglycemia, severe Recurrent episodes of syncope Pituitary tumor s/p multiple brain surgery and radiation therapy Acute on chronic renal failure UTI with sepsis Elevated serum troponin -Admit ICU -BIPAP, adjust setting for better minute ventilation and gas-exchange -Follow up ABGs in 2 hours -Give IV hydrocotisone and IV synthroid for replacement therapy - continue supplemental oxygen as needed to keep O2 sats 88-90% -Aspiration precautions -Accuchecks and correct hypoglycemia -NPO for now -Antibiotics for UTI, follow up TOM and culture results and adjust antibiotic therapy -VTE prophylaxis -Stress ulcer prophylaxis -Address nutrition in the next 24 hours CONDITION: CRITICAL PROGNOSIS: GUARDED CODE STATUS: FULL CODE The high probability of a clinically significant, sudden or life threatening deterioration of multiple system(s) required my full and direct attention, intervention and personal management. The aggregate critical care time was [35] minutes. This time is in addition to time spent performing reported procedures but includes the following: [x] Data Review and interpretation [x] Patient assessment and monitoring of vital signs [x] Documentation [x] Medication orders and management
[2018-05-04] MEDS: ASPIRIN PO SCH (10:24)
--- NOTE | 2018-05-04 11:29 | Consultation ---
History of Present Illness Consult date: 05/04/18 Consult reason: bradycardia History of present illness: Patient is a 62 year old woman who resides in a [facility] with multiple medical problems. Daughter at bedside gives a history of syncope and she has an indwelling loop recorder which is followed by [facility]. She has a history of dilated nonischemic cardiomyopathy. There is no history of coronary artery disease. Daughter states several years ago the patient underwent a cardiac cath with reports of no significant coronary disease. She has a history of multiple pituitary tumors and has poor vision and short term memory post surgery and radiation therapy. Co-morbidities includes chronic renal disease, hypertension and diabetes. EMS was called after she was found on the floor unresponsive. On EMS arrival she was said to be hypoglycemic with a blood sugar of 41. She was also noted with significant bradycardia, rate in the low 40s, and was given atropine. Home med ications list she is taking carvediolol 12.5mg twice a day. A 12 lead ECG shows sinus rhythm with a left bundle branch block. Chest x-ray shows cardiomegaly with pulmonary edema. Head CT scan reports no acute intracranial process. Initial labs shows a creatinine of 4.3 Medications and Allergies Allergies Allergy/AdvReac Type Severity Reaction Status Date / Time ciprofloxacin [From Cipro] Allergy Unknown Verified 05/04/18 03:40 prazosin [From Minipress] Allergy Unknown Verified 05/04/18 03:40 Home Medications Medication Instructions Recorded Confirmed Last Taken Type Ascorbic Acid [Vitamin C] 500 mg PO DAILY 05/04/18 05/04/18 Unknown History Aspirin [Aspirin BABY CHEW TAB] 81 mg PO QDAY 05/04/18 05/04/18 Unknown History AtorvaSTATin [Lipitor] 20 mg PO QHS 05/04/18 05/04/18 Unknown History Calcitriol [Rocaltrol] 0.25 mcg PO DAILY 05/04/18 05/04/18 Unknown History Carvedilol [Coreg] 12.5 mg PO BIDWM 05/04/18 05/04/18 Unknown History Citalopram Hydrobromide [Celexa] 40 mg PO QDAY 05/04/18 05/04/18 Unknown History Ergocalciferol [Vitamin D2] 1 cap PO QWEEK 05/04/18 05/04/18 Unknown History Ferrous Sulfate [Iron] 325 mg PO QAM 05/04/18 05/04/18 Unknown History Folic Acid [Folvite] 1 mg PO QDAY 05/04/18 05/04/18 Unknown History Furosemide [Lasix] 60 mg PO BID 05/04/18 05/04/18 Unknown History Hydrocortisone [Cortef TAB] 20 mg PO DAILY 05/04/18 05/04/18 Unknown History Lispro Insulin [Humalog] 1 dose SUB-Q ACHS 05/04/18 05/04/18 Unknown History Multivitamin Tab W-MINERAL 1 each PO DAILY 05/04/18 05/04/18 Unknown History [Multiple Vitamin/Mineral (Theragran M)] OLANZapine [Zyprexa] 5 mg PO QPM 05/04/18 05/04/18 Unknown History OLANzapine ZYDIS [ZyPREXA Zydis] 5 mg PO DAILY 05/04/18 05/04/18 Unknown History Potassium Chloride [Klor-Con 10] 20 meq PO QDAY 05/04/18 05/04/18 Unknown History Quetiapine Fumarate [Seroquel] 300 mg PO QPM 05/04/18 05/04/18 Unknown History amLODIPine [Norvasc] 10 mg PO DAILY 05/04/18 05/04/18 Unknown History glipiZIDE [Glipizide] 5 mg PO BID 05/04/18 05/04/18 Unknown History traZODone [Desyrel] 50 mg PO QHS 05/04/18 05/04/18 Unknown History Active Meds: Active Medications Aspirin (Aspirin) 325 mg PO QDAY [facility] Last Admin: 05/04/18 10:24 Dose: Not Given Documented by: Atorvastatin Calcium (Lipitor) 40 mg PO QHS [facility] Dextrose/Sodium Chloride (D5ns) 1,000 mls @ 75 mls/hr IV DIRECT [facility] Last Admin: 05/04/18 10:15 Dose: 75 mls/hr Documented by: Physical Examination Vital Signs Pulse Resp 142 H 12 05/04/18 03:28 05/04/18 03:28 General appearance: obese, other (on bipap) Cardiac: Positive: Bradycardia Results 05/04/18 04:07 05/04/18 04:07 Cardiac Enzymes 05/04/18 Range/Units 04:07 AST 27 (5-40) units/L Coagulation 05/04/18 Range/Units 04:07 PT 15.7 H (12.2-14.9) Sec. INR 1.17 H (0.87-1.13) APTT 38.2 H (24.2-36.6) Sec. Lipids 05/04/18 Range/Units 05:50 Triglycerides 58 (2-149) mg/dL Cholesterol 116 (50-199) mg/dL HDL Cholesterol 33 L (40-59) mg/dL Cholesterol/HDL Ratio 3.51 % CBC 05/04/18 Range/Units 04:07 WBC 5.9 (4.5-11.0) K/mm3 RBC 3.22 L (3.65-5.03) M/mm3 Hgb 9.4 L (10.1-14.3) gm/dl Hct 28.7 L (30.3-42.9) % Plt Count 230 (140-440) K/mm3 Comprehensive Metabolic Panel 05/04/18 Range/Units 04:07 Sodium 139 (137-145) mmol/L Potassium 4.9 (3.6-5.0) mmol/L Chloride 98.8 (98-107) mmol/L Carbon Dioxide 26 (22-30) mmol/L BUN 71 H (7-17) mg/dL Creatinine 4.3 H (0.7-1.2) mg/dL Glucose 124 H (65-100) mg/dL Calcium 10.1 (8.4-10.2) mg/dL AST 27 (5-40) units/L ALT 29 (7-56) units/L Alkaline Phosphatase 202 H (35-129) units/L Total Protein 6.8 (6.3-8.2) g/dL Albumin 2.9 L (3.9-5) g/dL Assessment and Plan Altered mental status Pulmonary edema Hypoglycemia -resolved Sinus bradycardia beta blockers held Hx of Syncope s/p loop recorder Hypertension Hx of pituitary tumors s/p craniotomy and radiation therapy Check a TSH and magnesium. Continue to hold beta blockers. Echocardiogram for LVEF assessment.
[2018-05-04 12:10] LABS: Amphetamine Screen,Urine PRESUMPTIVE NEGATIVE; Benzodiazepines Screen,Urine PRESUMPTIVE NEGATIVE; Cannabinoid Screen,Urine PRESUMPTIVE NEGATIVE; Cocaine Screen,Urine PRESUMPTIVE NEGATIVE; Methadone Screen,Urine PRESUMPTIVE NEGATIVE; Opiate Screen,Urine PRESUMPTIVE NEGATIVE
[2018-05-04] MEDS: SYNTHROID IV SCH (15:00)
[2018-05-04] MEDS ORDERED: SOLU-Medrol IV ONE (16:08)
[2018-05-04] MEDS ORDERED: MAXIPIME/NS 1 GM/100 ML 1 GM/100 ML BAG IV SCH ×2 (18:00→22:00)
[2018-05-04] MEDS: MAXIPIME/NS 1 GM/100 ML 1 GM/100 ML BAG IV SCH (20:12)
[2018-05-05] MEDS: SYNTHROID IV SCH (06:15)
[2018-05-05] MEDS: MAXIPIME/NS 1 GM/100 ML 1 GM/100 ML BAG IV SCH (07:19)
[2018-05-05] MEDS: FOLVITE PO SCH (10:38)
[2018-05-05] MEDS: ASPIRIN PO SCH (10:38)
[2018-05-05] MEDS: FEOSOL PO SCH (10:38)
--- NOTE | 2018-05-05 11:43 | Progress Note ---
Assessment and Plan Altered mental status -resolved UTI Hypoglycemia -resolved Hypothyroidism TSH 9.0 Sinus bradycardia -resolved coreg discontinued Hx of recurrent Syncope s/p loop recorder Hypertension Hx of pituitary tumors s/p multiple brain surgery and radiation therapy Chronic renal failure Echocardiogram reports a mildly decrease left ventricular systolic function, EF 45-50%. Subjective Date of service: 05/05/18 Interval history: Patient awake, alert and appears comfortable. She denies chest pain and shortness of breath. Stable sinus rhythm on telemetry. Objective Vital Signs Temp Pulse Pulse Resp BP Pulse Ox 05/05/18 11:30 79 10 L 106/74 94 05/05/18 11:20 80 21 106/74 95 05/05/18 11:10 83 17 106/74 94 05/05/18 11:00 82 19 106/74 96 05/05/18 10:50 85 15 106/74 95 05/05/18 10:40 91 H 16 106/74 91 05/05/18 10:30 84 12 106/74 91 05/05/18 10:20 84 12 106/74 92 05/05/18 10:10 83 10 L 106/74 93 05/05/18 10:00 87 11 L 106/74 94 05/05/18 09:50 85 12 120/81 95 05/05/18 09:40 96 H 17 120/81 93 05/05/18 09:30 85 13 120/81 94 05/05/18 09:20 88 13 120/81 93 05/05/18 09:10 89 12 120/81 94 05/05/18 09:00 92 H 14 120/81 92 05/05/18 08:50 86 15 126/79 90 05/05/18 08:40 81 16 126/79 91 05/05/18 08:30 84 14 126/79 90 05/05/18 08:24 91 05/05/18 08:20 85 15 126/79 90 05/05/18 08:10 84 15 126/79 90 05/05/18 08:00 83 15 126/79 91 05/05/18 07:50 84 13 119/82 91 05/05/18 07:40 87 9 L 119/82 97 05/05/18 07:30 86 17 119/82 92 05/05/18 07:20 82 16 119/82 92 03/06/19 07:10 85 17 119/82 91 05/05/18 07:00 82 14 119/82 91 05/05/18 06:50 82 15 125/81 93 05/05/18 06:40 79 16 125/81 93 05/05/18 06:30 85 16 125/81 92 05/05/18 06:20 83 12 125/81 93 05/05/18 06:10 85 14 125/81 92 05/05/18 06:00 82 19 146/69 94 05/05/18 05:50 87 17 146/69 93 05/05/18 05:40 85 14 146/69 92 05/05/18 05:30 79 16 146/69 97 05/05/18 05:20 84 16 146/69 97 05/05/18 05:10 83 12 146/69 94 05/05/18 05:00 87 17 146/69 93 05/05/18 04:50 63 14 141/62 97 05/05/18 04:40 82 11 L 141/62 93 05/05/18 04:30 79 13 141/62 95 05/05/18 04:20 80 10 L 141/62 97 05/05/18 04:10 79 13 141/62 94 05/05/18 04:00 70 13 141/62 98 05/05/18 03:50 78 14 142/88 94 05/05/18 03:40 77 11 L 142/88 94 05/05/18 03:30 73 13 142/88 97 05/05/18 03:20 79 13 142/88 93 05/05/18 03:19 96.1 F L 75 14 95 05/05/18 03:10 63 12 142/88 96 06 03:00 81 20 118/68 96 05/05/18 02:50 77 12 118/68 93 06 02:40 76 13 118/68 97 06 02:30 69 13 118/68 96 05/05/18 02:20 65 11 L 118/68 98 06 02:10 70 10 L 118/68 93 05/05/18 02:00 75 11 L 118/68 93 06 01:50 59 L 13 121/76 97 06 01:40 67 11 L 121/76 93 03/06/19 01:30 74 13 121/76 95 05/05/18 01:20 69 12 121/76 97 05/05/18 01:11 20 95 05/05/18 01:10 70 14 121/76 95 05/05/18 01:00 68 11 L 121/76 98 05/05/18 00:50 73 13 128/72 97 05/05/18 00:40 70 14 128/72 97 05/05/18 00:30 68 14 128/72 97 05/05/18 00:20 69 11 L 128/72 97 05/05/18 00:10 68 12 128/72 99 05/05/18 00:00 93.6 F L 68 60 8 L 138/85 100 05/04/18 23:50 70 14 138/85 99 05/04/18 23:45 68 25 H 138/85 100 05/04/18 23:40 51 L 12 97 05/04/18 23:30 70 13 138/85 98 05/04/18 23:20 72 12 138/85 95 05/04/18 23:10 45 L 12 144/73 95 05/04/18 23:00 67 9 L 138/85 98 05/04/18 22:50 47 L 12 144/73 94 05/04/18 22:40 56 L 13 144/73 97 05/04/18 22:35 66 13 144/73 97 05/04/18 22:30 45 L 14 144/73 91 05/04/18 22:20 62 15 144/73 96 05/04/18 22:10 61 14 144/73 93 05/04/18 22:00 44 L 13 144/76 95 05/04/18 21:50 62 15 144/76 05/04/18 21:40 47 L 13 144/76 95 05/04/18 21:30 66 13 144/76 96 05/04/18 21:20 50 L 12 144/76 96 05/04/18 21:10 62 12 144/76 97 05/04/18 21:00 46 L 14 136/86 95 05/04/18 20:50 46 L 14 136/86 97 05/04/18 20:40 63 17 136/86 96 05/04/18 20:30 56 L 15 136/86 97 05/04/18 20:20 46 L 13 136/86 97 05/04/18 20:10 49 L 13 136/86 96 05/04/18 20:00 58 L 49 L 8 L 136/86 94 05/04/18 19:50 51 L 12 134/77 96 05/04/18 19:40 58 L 11 L 134/77 96 05/04/18 19:36 98 05/04/18 19:30 55 L 12 134/77 98 05/04/18 19:20 54 L 14 134/77 98 05/04/18 19:10 55 L 15 134/77 96 05/04/18 19:00 45 L 16 134/77 98 05/04/18 18:50 60 21 126/71 97 05/04/18 18:40 49 L 10 L 126/71 99 05/04/18 18:30 44 L 10 L 126/71 98 05/04/18 18:20 56 L 12 126/71 98 05/04/18 18:10 57 L 14 126/71 99 05/04/18 18:00 47 L 53 L 16 126/71 98 05/04/18 17:50 53 L 11 L 119/80 97 05/04/18 17:40 46 L 10 L 119/80 97 05/04/18 17:30 51 L 10 L 119/80 97 05/04/18 17:20 58 L 14 119/80 98 05/04/18 17:10 54 L 12 119/80 98 05/04/18 17:00 55 L 11 L 119/80 99 05/04/18 16:50 56 L 11 L 121/78 100 05/04/18 16:40 47 L 13 121/78 100 05/04/18 16:30 54 L 11 L 121/78 100 05/04/18 16:20 56 L 10 L 121/78 99 05/04/18 16:10 46 L 10 L 121/78 100 05/04/18 16:00 55 L 60 13 121/78 99 05/04/18 15:50 55 L 14 124/73 99 05/04/18 15:40 55 L 11 L 124/73 100 05/04/18 15:30 49 L 10 L 124/73 100 05/04/18 15:20 66 15 124/73 97 05/04/18 15:10 52 L 13 124/73 100 05/04/18 15:00 50 L 12 124/73 99 05/04/18 14:50 52 L 13 114/80 100 05/04/18 14:49 50 L 16 100 05/04/18 14:40 53 L 13 114/80 100 05/04/18 14:30 51 L 12 114/80 98 05/04/18 12:30 43 L 19 - Physical Examination General: No Apparent Distress Cardiac: Positive: Reg Rate and Rhythm
--- NOTE | 2018-05-05 12:04 | Consultation ---
History of Present Illness - Reason for Consult Consult date: 05/05/18 acute renal failure, chronic renal failure Requesting physician: JOSIE SIERRA - History of Present Illness This is a 62 yo F [place] [facility] with past medical history of Hypertension, Type 2 DM, CKD stage [address] Esparza, dilated nonischemic cardiomyopathy, pituitary tumor, hyperlipidemia, who was brought to the ER by EMS after she was found on the floor unresponsive in the [place]. On EMS arrival she was said to be hypoglycemic with a blood sugar of 41 along with significant b radycardia with HR around 40s. Pt was given atropine. IN ER Chest x-ray showed cardiomegaly with pulmonary edema, EKG showed sinus rhythm with a left bundle branch block, Head CT scan reports no acute intracranial process. UA showed evidence of UTI and Labs showed elevated BUN/Cr at 71/4.3mg/dl for which renal consult is requested. based on office chart review, pt's baseline Cr is around 1.9-2mg/dl. pt remains with change of mental status and is not able to give detailed history Past History Past Medical History: diabetes, hypertension, hyperlipidemia, hypothyroidism, other (CKD, pituitary tumor) Past Surgical History: Other (multiple pituitary surgery, cardiac cath, lump removal) Social history: smoking (quit smoking at least 20 years ago), other (lives in a halfway). denies: alcohol abuse, IV drug use Family history: diabetes, hypertension Medications and Allergies Allergies Allergy/AdvReac Type Severity Reaction Status Date / Time ciprofloxacin [From Cipro] Allergy Unknown Verified 05/04/18 03:40 prazosin [From Minipress] Allergy Unknown Verified 05/04/18 03:40 Home Medications Medication Instructions Recorded Confirmed Last Taken Type Ascorbic Acid [Vitamin C] 500 mg PO DAILY 05/04/18 05/04/18 Unknown History Aspirin [Aspirin BABY CHEW TAB] 81 mg PO QDAY 05/04/18 05/04/18 Unknown History AtorvaSTATin [Lipitor] 20 mg PO QHS 05/04/18 05/04/18 Unknown History Calcitriol [Rocaltrol] 0.25 mcg PO DAILY 05/04/18 05/04/18 Unknown History Carvedilol [Coreg] 12.5 mg PO BIDWM 05/04/18 05/04/18 Unknown History Citalopram Hydrobromide [Celexa] 40 mg PO QDAY 05/04/18 05/04/18 Unknown History Ergocalciferol [Vitamin D2] 1 cap PO QWEEK 05/04/18 05/04/18 Unknown History Ferrous Sulfate [Iron] 325 mg PO QAM 05/04/18 05/04/18 Unknown History Folic Acid [Folvite] 1 mg PO QDAY 05/04/18 05/04/18 Unknown History Furosemide [Lasix] 60 mg PO BID 05/04/18 05/04/18 Unknown History Hydrocortisone [Cortef TAB] 20 mg PO DAILY 05/04/18 05/04/18 Unknown History Lispro Insulin [Humalog] 1 dose SUB-Q ACHS 05/04/18 05/04/18 Unknown History Multivitamin Tab W-MINERAL 1 each PO DAILY 05/04/18 05/04/18 Unknown History [Multiple Vitamin/Mineral (Theragran M)] OLANZapine [Zyprexa] 5 mg PO QPM 05/04/18 05/04/18 Unknown History OLANzapine ZYDIS [ZyPREXA Zydis] 5 mg PO DAILY 05/04/18 05/04/18 Unknown History Potassium Chloride [Klor-Con 10] 20 meq PO QDAY 05/04/18 05/04/18 Unknown History Quetiapine Fumarate [Seroquel] 300 mg PO QPM 05/04/18 05/04/18 Unknown History amLODIPine [Norvasc] 10 mg PO DAILY 05/04/18 05/04/18 Unknown History glipiZIDE [Glipizide] 5 mg PO BID 05/04/18 05/04/18 Unknown History traZODone [Desyrel] 50 mg PO QHS 05/04/18 05/04/18 Unknown History Active Meds: Active Medications Aspirin (Aspirin) 325 mg PO QDAY [facility] Last Admin: 05/05/18 10:38 Dose: 325 mg Documented by: Atorvastatin Calcium (Lipitor) 40 mg PO QHS [facility] Last Admin: 05/04/18 22:17 Dose: 40 mg Documented by: Ergocalciferol (Vitamin D2) 50,000 unit PO [facility] [place] Sulfate ([facility]osol) [facility] [place] [facility] [place] Admin: 05/05/18 10:38 Dose: 325 mg Documented by: Folic Acid (Folvite) 1 mg PO QDAY [facility] Last Admin: 05/05/18 10:38 Dose: 1 mg Documented by: Heparin Sodium (Porcine) (Heparin) 5,000 unit SUB-Q Q8HR [facility] Hydrocortisone Acetate (Cortef) 10 mg PO Q12HR [facility] Dextrose/Sodium Chloride (D5ns) 1,000 mls @ 75 mls/hr IV DIRECT [facility] Last Admin: 05/04/18 10:15 Dose: 75 mls/hr Documented by: Cefepime HCl (Maxipime/Ns 1 Gm/100 Ml) 1 gm in 100 mls @ 200 mls/hr IV Q24H [facility]; Protocol Insulin Glargine (Lantus) 10 units SUB-Q QHS [facility] Insulin Human Lispro (Humalog) 0 unit SUB-Q Q6HR [facility]; Protocol Levothyroxine Sodium (Synthroid) 75 mcg PO DAILY@0600 [facility] Review of Systems ROS unobtainable: due to mental status Exam - Vital Signs Vital signs: Vital Signs Pulse Resp 142 H 12 05/04/18 03:28 05/04/18 03:28 - General Appearance General appearance: well-developed, well-nourished, appears stated age, obese EENT: ATNC, PERRL, mucous membranes dry Neck: Present: neck supple Respiratory: Clear to Ascultation Heart: regular, S1S2 Gastrointestinal: Present: normoactive bowel sounds, obese Integumentary: no rash, other (no edema ) Neurologic: confused, disoriented Results - Lab Results 05/04/18 04:07 05/04/18 04:07 Most recent lab results Calcium 10.1 mg/dL (8.4-10.2) 05/04/18 04:07 Magnesium 2.70 mg/dL (1.7-2.3) H 05/04/18 Unknown Laboratory Tests 05/04/18 05/04/18 05/04/18 04:01 04:07 04:07 PT 15.7 H APTT 38.2 H POC ABG pH 7.320 L POC ABG pO2 96 POC ABG HCO3 28.5 POC ABG Total CO2 30 Lactic Acid Calcium 10.1 Magnesium Total Bilirubin 0.20 AST 27 ALT 29 Alkaline Phosphatase 202 H Troponin T Total Protein 6.8 Albumin 2.9 L Albumin/Globulin Ratio 0.7 Triglycerides Cholesterol HDL Cholesterol Cholesterol/HDL Ratio TSH Free T4 Urine Color Urine pH Urine Protein Urine Glucose (UA) Urine Blood Urine Bilirubin Ur Leukocyte Esterase Urine WBC (Auto) Urine RBC (Auto) Urine Bacteria (Auto) Urine WBC Clumps Amorphous Crystals Hyaline Casts Urine Mucus 05/04/18 05/04/18 05/04/18 04:07 04:09 05:21 PT APTT POC ABG pH POC ABG pO2 POC ABG HCO3 POC ABG Total CO2 Lactic Acid 1.00 Calcium Magnesium Total Bilirubin AST ALT Alkaline Phosphatase Troponin T 0.093 H Total Protein Albumin Albumin/Globulin Ratio Triglycerides Cholesterol HDL Cholesterol Cholesterol/HDL Ratio TSH Free T4 Urine Color Yellow Urine pH 5.0 Urine Protein <15 mg/dl Urine Glucose (UA) Neg Urine Blood Neg Urine Bilirubin Neg Ur Leukocyte Esterase Mod Urine WBC (Auto) 64.0 H Urine RBC (Auto) 5.0 Urine Bacteria (Auto) 3+ Urine WBC Clumps 2+ Amorphous Crystals 3+ Hyaline Casts 3 Urine Mucus Few 05/04/18 05/04/18 05/04/18 05:50 12:30 12:30 PT APTT POC ABG pH POC ABG pO2 POC ABG HCO3 POC ABG Total CO2 Lactic Acid Calcium Magnesium Total Bilirubin AST ALT Alkaline Phosphatase Troponin T Total Protein Albumin Albumin/Globulin Ratio Triglycerides 58 Cholesterol 116 HDL Cholesterol 33 L Cholesterol/HDL Ratio 3.51 TSH 9.000 H Free T4 < 0.10 L Urine Color Urine pH Urine Protein Urine Glucose (UA) Urine Blood Urine Bilirubin Ur Leukocyte Esterase Urine WBC (Auto) Urine RBC (Auto) Urine Bacteria (Auto) Urine WBC Clumps Amorphous Crystals Hyaline Casts Urine Mucus 05/04/18 Unknown PT APTT POC ABG pH POC ABG pO2 POC ABG HCO3 POC ABG Total CO2 Lactic Acid Calcium Magnesium 2.70 H Total Bilirubin AST ALT Alkaline Phosphatase Troponin T Total Protein Albumin Albumin/Globulin Ratio Triglycerides Cholesterol HDL Cholesterol Cholesterol/HDL Ratio TSH Free T4 Urine Color Urine pH Urine Protein Urine Glucose (UA) Urine Blood Urine Bilirubin Ur Leukocyte Esterase Urine WBC (Auto) Urine RBC (Auto) Urine Bacteria (Auto) Urine WBC Clumps Amorphous Crystals Hyaline Casts Urine Mucus Assessment and Plan - Patient Problems (1) Acute kidney injury Current Visit: Yes Status: Acute Plan to address problem: suspect SINTIA secondary to pre-renal azotemia in the setting of UTI/hypoglycemia/bradycardia. UA negative for hematuria/proteinuria, I doubt acute glomerular injury. check urine lytes/urine protein/cr ratio. cont gentle IVF with D5NS. cont supportive care for SINTIA avoid nephrotoxins, NSAIDs, IV contrast (2) Altered mental status Current Visit: Yes Status: Acute Plan to address problem: in the setting of UTI/hypoglycemia. CT head without acute findings (3) Bradycardia Current Visit: Yes Status: Acute Plan to address problem: follow cardiology recs (4) UTI (urinary tract infection) Current Visit: Yes Status: Acute Plan to address problem: ABX treatment with ceftriaxone, no renal adjustment needed (5) Type 2 diabetes mellitus with diabetic chronic kidney disease Current Visit: Yes Status: Acute Plan to address problem: glucose control as per primary attending (6) Hypertensive chronic kidney disease with stage 1 through stage 4 chronic kidney disease, or unspecified chronic kidney disease Current Visit: Yes Status: Acute Plan to address problem: BP borderline low, hold BP meds and cont IV NS (7) Chronic kidney disease, stage 4 (severe) Current Visit: Yes Status: Acute (8) Hypoglycemia Current Visit: Yes Status: Acute Plan to address problem: cont D5NS
[2018-05-05 15:43] LABS: Calcium 8.9 mg/dL (8.4-10.2)
[2018-05-05] MEDS: HumaLOG SUB-Q SCH ×2 (19:33→19:34)
[2018-05-05] MEDS: HEPARIN SUB-Q SCH ×2 (19:34→22:40)
[2018-05-05] MEDS: CORTEF PO SCH (23:15)
[2018-05-05] MEDS: LANTUS SUB-Q SCH (23:40)
[2018-05-06] MEDS: HumaLOG SUB-Q SCH ×5 (01:54→21:28)
[2018-05-06] MEDS: SYNTHROID PO SCH (05:21)
[2018-05-06] MEDS: HEPARIN SUB-Q SCH ×3 (05:21→21:22)
[2018-05-06] MEDS ORDERED: D50W (25GM) Syringe IV PRN (05:32)
--- NOTE | 2018-05-06 07:23 | Progress Note ---
Assessment and Plan Aletered mental status - reason for admission - likely from hypoglycemia Sinus bradycardia, hemodynamically stable - no need for intervention, per cardiology - hold BB and non-dihydropyridine CCB (patient was on coreg at the OR) - sparkle from severe hypothyroidism, Continue to monitor on tele Severe hypothyroidosm - cont on iv synthroid with steroid dose Recurrent episodes of syncope - Patient has a loop recorder for that reason Pituitary tumor s/p multiple brain surgery and radiation therapy - CT head obtained, no new change Acute on chronic renal failure - sparkle from vasomotor nephropathy - monitor BMP UTI with sepsis - UA positive for UTI with worsening renal function and alteration of mental status - cont abx, follow cx Elevated troponin/NSTEMI 2 ?? - trens trop, 2d echo - cont aspirin, statin -Cardiology consulted Dvt Px, heparin Subjective Date of service: 05/05/18 Interval history: patient seen and examined no acute event o/n off ventimask unable to answer any question Objective - Exam Narrative Exam: GENERAL: well-developed obese female lying on bed with a n/c. HEENT: Normocephalic. Atraumatic. No conjunctival congestion or icterus. Patient has dry mucous membranes. NECK: Supple. Trachea midline. CHEST/LUNGS: Clear to auscultated bilaterally, breathing nonlabored. No wheezes crackles or rhonchi. HEART/CARDIOVASCULAR: Bradycardic. S1 and S2 positive. ABDOMEN: Abdomen is soft, nontender. Patient has normal bowel sounds. SKIN: There is no rash. Warm and dry. NEURO: Unable to Follow command. Very lethargic MUSCULOSKELETAL: No joint effusion or tenderness. EXTRIMITY: No edema, no cyanosis or clubbing. PSYCH: Unable to assess, confused - Constitutional Vitals: Vital Signs - 12hr 05/05/18 05/05/18 22:00 23:55 Pulse Rate 72 O2 Sat by Pulse 98 Oximetry - Labs CBC & Chem 7: 05/06/18 07:36 05/06/18 07:36 Labs: Abnormal lab results 05/05/18 05/05/18 05/05/18 Range/Units 05:00 12:04 15:17 Potassium 5.1 H (3.6-5.0) mmol/L BUN 56 H (7-17) mg/dL Creatinine 3.5 H (0.7-1.2) mg/dL Glucose 289 H (65-100) mg/dL POC Glucose 261 H (70-105) Troponin T 0.053 H (0.00-0.029) ng/mL 05/05/18 05/06/18 Range/Units 22:43 05:34 Potassium (3.6-5.0) mmol/L BUN (7-17) mg/dL Creatinine (0.7-1.2) mg/dL Glucose (65-100) mg/dL POC Glucose 151 H 208 H (70-105) Troponin T (0.00-0.029) ng/mL
[2018-05-06 07:59] LABS: Hematocrit 29.3 % (30.3-42.9); Hemoglobin 9.5 gm/dl (10.1-14.3); Mean Corpuscular HGB Conc 33 % (30-34); Mean Corpuscular Volume 89 fl (79-97); Platelet Count 278 K/mm3 (140-440); Red Cell Distribution Width 17.1 % (13.2-15.2)
[2018-05-06 08:15] LABS: Calcium 8.6 mg/dL (8.4-10.2)
[2018-05-06] MEDS ORDERED: MAXIPIME/NS 1 GM/100 ML 1 GM/100 ML BAG IV SCH (09:00)
[2018-05-06] MEDS: FEOSOL PO SCH (09:37)
[2018-05-06] MEDS: ASPIRIN PO SCH (09:38)
[2018-05-06] MEDS: FOLVITE PO SCH (09:38)
--- NOTE | 2018-05-06 14:10 | Progress Note ---
Assessment and Plan Altered mental status Sinus bradycardia Severe hypothyroidism Hypoglycemia Recurrent episodes of syncope Pituitary tumor s/p multiple brain surgery and radiation therapy Acute on chronic renal failure UTI with sepsis Elevated serum troponin - continue supplemental oxygen as needed to keep O2 sats > 90% - continue fall precautions - change BIPAP to prn re: head injuries post fall (CT brain negative) - outpatient PSG - continue thyroid replacement therapy - PT/OT as tolerated - fall precautions - continue Rocephin for E.Coli UTI - ACS w/up ongoing per cardiology (loop recorder) - to f/up with neurologist outpatient re: possible pituitary adenome regrowth - GI & VTE prophylaxis - continue other care per attending ..... re-evaluate in am & prn Subjective Date of service: 05/06/18 Principal diagnosis: AMS; Sinus bradycardia; Severe hypothyroidism; Hypoglycemia; Syncope Interval history: Patient is seen today for: Altered mental status; Sinus bradycardia; Severe hypothyroidism; Hypoglycemia; Recurrent episodes of syncope Seen and examined at bedside; 24hour events reviewed; nursing and respiratory care staff consulted; no adverse overnight events reported to me; resting peacefully in bed; denies acute chest pains or palpitations; no N/V/F/C; sitter in room Objective Vital Signs - 12hr 05/06/18 05/06/18 05/06/18 05:18 08:12 08:20 Temperature 97.3 F L 98.2 F Pulse Rate 72 Respiratory 20 18 Rate Blood Pressure 143/85 142/92 O2 Sat by Pulse 95 96 Oximetry Constitutional: no acute distress, alert, other (elderly looking AAF, normocephalic with mildly increased respiratory effort at rest) Eyes: non-icteric, other (erythematous left orbital region / eyelids s/p prior fall) ENT: oropharynx moist Neck: supple, no lymphadenopathy, no JVD, other (large neck circumference) Effort: mildly labored Ascultation: Bilateral: diminished breath sounds, rhonchi (scant in posterior bases) Percussion: Bilateral: not dull Cardiovascular: regular rate and rhythm Gastrointestinal: normoactive bowel sounds, soft, non-tender, non-distended Integumentary: normal Extremities: no cyanosis, pink and warm, no ischemia or petechiae, edema (trace') Neurologic: non-focal exam (grossly), pupils equal and round, CN II-XII normal, other (? pleasantly demented) Psychiatric: mood appropriate, affect normal CBC and BMP: 05/06/18 07:36 05/06/18 07:36 ABG, PT/INR, D-dimer: ABG POC ABG pH 7.307 (7.35-7.45) L 05/04/18 11:56 POC ABG pCO2 53.9 (35-45) H 05/04/18 11:56 POC ABG pO2 86 (80-105) 05/04/18 11:56 POC ABG HCO3 27.0 05/04/18 11:56 POC ABG Total CO2 29 05/04/18 11:56 POC ABG O2 Sat 95 05/04/18 11:56 PT/INR, D-dimer PT 15.7 Sec. (12.2-14.9) H 05/04/18 04:07 INR 1.17 (0.87-1.13) H 05/04/18 04:07 Abnormal lab findings: Abnormal Labs 05/04/18 05/04/18 05/04/18 04:01 04:07 04:07 WBC RBC 3.22 L Hgb 9.4 L Hct 28.7 L RDW 17.0 H Seg Neuts % (Manual) 77.0 H Lymphocytes # (Manual) 1.1 L PT 15.7 H INR 1.17 H APTT 38.2 H POC ABG pH 7.320 L POC ABG pCO2 55.4 H Potassium BUN Creatinine Glucose POC Glucose Magnesium Alkaline Phosphatase Troponin T Albumin HDL Cholesterol TSH Free T4 Urine WBC (Auto) 05/04/18 05/04/18 05/04/18 04:07 04:07 05:21 WBC RBC Hgb Hct RDW Seg Neuts % (Manual) Lymphocytes # (Manual) PT INR APTT POC ABG pH POC ABG pCO2 Potassium BUN 71 H Creatinine 4.3 H Glucose 124 H POC Glucose Magnesium Alkaline Phosphatase 202 H Troponin T 0.093 H Albumin 2.9 L HDL Cholesterol TSH Free T4 Urine WBC (Auto) 64.0 H 05/04/18 05/04/18 05/04/18 05:50 11:56 12:30 WBC RBC Hgb Hct RDW Seg Neuts % (Manual) Lymphocytes # (Manual) PT INR APTT POC ABG pH 7.307 L POC ABG pCO2 53.9 H Potassium BUN Creatinine Glucose POC Glucose Magnesium Alkaline Phosphatase Troponin T 0.072 H D 0.074 H Albumin HDL Cholesterol 33 L TSH Free T4 Urine WBC (Auto) 05/04/18 05/04/18 05/04/18 12:30 12:30 17:25 WBC RBC Hgb Hct RDW Seg Neuts % (Manual) Lymphocytes # (Manual) PT INR APTT POC ABG pH POC ABG pCO2 Potassium BUN Creatinine Glucose POC Glucose Magnesium Alkaline Phosphatase Troponin T 0.061 H Albumin HDL Cholesterol TSH 9.000 H Free T4 < 0.10 L Urine WBC (Auto) 05/04/18 05/05/18 05/05/18 Unknown 00:47 01:56 WBC RBC Hgb Hct RDW Seg Neuts % (Manual) Lymphocytes # (Manual) PT INR APTT POC ABG pH POC ABG pCO2 Potassium BUN Creatinine Glucose POC Glucose 306 H Magnesium 2.70 H Alkaline Phosphatase Troponin T 0.062 H Albumin HDL Cholesterol TSH Free T4 Urine WBC (Auto) 05/05/18 05/05/18 05/05/18 05:00 06:00 12:04 WBC RBC Hgb Hct RDW Seg Neuts % (Manual) Lymphocytes # (Manual) PT INR APTT POC ABG pH POC ABG pCO2 Potassium BUN Creatinine Glucose POC Glucose 299 H 261 H Magnesium Alkaline Phosphatase Troponin T 0.053 H Albumin HDL Cholesterol TSH Free T4 Urine WBC (Auto) 05/05/18 05/05/18 05/06/18 15:17 22:43 05:34 WBC RBC Hgb Hct RDW Seg Neuts % (Manual) Lymphocytes # (Manual) PT INR APTT POC ABG pH POC ABG pCO2 Potassium 5.1 H BUN 56 H Creatinine 3.5 H Glucose 289 H POC Glucose 151 H 208 H Magnesium Alkaline Phosphatase Troponin T Albumin HDL Cholesterol TSH Free T4 Urine WBC (Auto) 05/06/18 05/06/18 05/06/18 07:36 07:36 10:06 WBC 13.8 H RBC 3.30 L Hgb 9.5 L Hct 29.3 L RDW 17.1 H Seg Neuts % (Manual) Lymphocytes # (Manual) PT INR APTT POC ABG pH POC ABG pCO2 Potassium BUN 54 H Creatinine 3.3 H Glucose 178 H POC Glucose 192 H Magnesium Alkaline Phosphatase Troponin T Albumin HDL Cholesterol TSH Free T4 Urine WBC (Auto) Chest x-ray: image reviewed
[2018-05-06] MEDS: CORTEF PO SCH ×2 (14:19→21:23)
--- NOTE | 2018-05-06 15:51 | Progress Note ---
Assessment and Plan Aletered mental status - reason for admission - likely from hypoglycemia Sinus bradycardia, hemodynamically stable - no need for intervention, per cardiology - hold BB and non-dihydropyridine CCB (patient was on coreg at the [place]) - likely from severe hypothyroidism, Continue to monitor on tele Severe hypothyroidosm - cont on iv synthroid with steroid dose Recurrent episodes of syncope - Patient has a loop recorder for that reason Pituitary tumor s/p multiple brain surgery and radiation therapy - CT head obtained, showed isodense rounded mass in the suprasellar region measuring 2.5 x 2 cm. This could be regrowth of her known pituitary adenoma, discussed the finding with her daughter and they will f/u with her neurologist at [place] Acute on chronic renal failure - likley from vasomotor nephropathy - monitor BMP UTI with sepsis - UA positive for UTI with worsening renal function and alteration of mental status - cont abx, cx growing E. coli Elevated troponin/NSTEMI 2 ?? - developed in light of worsening renal function - trended trop, 2d echo showed 45-50% EF - cont aspirin, statin -Cardiology consulted and recommended medical MX Dvt Px, heparin Subjective Date of service: 05/06/18 Interval history: patient seen and examined no acute event o/n able to answer any question and follow commend Objective - Exam Narrative Exam: GENERAL: well-developed obese female lying on bed with a n/c. HEENT: Normocephalic. Atraumatic. No conjunctival congestion or icterus. Patient has dry mucous membranes. left eye closed and unable to open eyelid NECK: Supple. Trachea midline. CHEST/LUNGS: Clear to auscultated bilaterally, breathing nonlabored. No wheezes crackles or rhonchi. HEART/CARDIOVASCULAR: Bradycardic. S1 and S2 positive. ABDOMEN: Abdomen is soft, nontender. Patient has normal bowel sounds. SKIN: There is no rash. Warm and dry. NEURO: Follow command. MUSCULOSKELETAL: No joint effusion or tenderness. EXTRIMITY: No edema, no cyanosis or clubbing. PSYCH: cooperative - Constitutional Vitals: Vital Signs - 12hr 05/06/18 05/06/18 05/06/18 05:18 08:12 08:20 Temperature 97.3 F L 98.2 F Pulse Rate 72 Respiratory 20 18 Rate Blood Pressure 143/85 142/92 O2 Sat by Pulse 95 96 Oximetry - Labs CBC & Chem 7: 05/06/18 07:36 05/06/18 07:36 Labs: Abnormal lab results 05/05/18 05/06/18 05/06/18 Range/Units 22:43 05:34 07:36 WBC 13.8 H (4.5-11.0) K/mm3 RBC 3.30 L (3.65-5.03) M/mm3 Hgb 9.5 L (10.1-14.3) gm/dl Hct 29.3 L (30.3-42.9) % RDW 17.1 H (13.2-15.2) % BUN (7-17) mg/dL Creatinine (0.7-1.2) mg/dL Glucose (65-100) mg/dL POC Glucose 151 H 208 H (70-105) 05/06/18 05/06/18 Range/Units 07:36 10:06 WBC (4.5-11.0) K/mm3 RBC (3.65-5.03) M/mm3 Hgb (10.1-14.3) gm/dl Hct (30.3-42.9) % RDW (13.2-15.2) % BUN 54 H (7-17) mg/dL Creatinine 3.3 H (0.7-1.2) mg/dL Glucose 178 H (65-100) mg/dL POC Glucose 192 H (70-105)
[2018-05-06 19:41] LABS: Creatinine,Urine 102.7 mg/dL (0.1-20.0)
[2018-05-06] MEDS: LANTUS SUB-Q SCH (21:26)
[2018-05-06] MEDS: ROCEPHIN/NS 1 GM/50 ML 1 GM/50 ML BAG IV SCH (21:30)
[2018-05-07] MEDS: HEPARIN SUB-Q SCH ×2 (05:29→15:43)
[2018-05-07] MEDS: SYNTHROID PO SCH (05:31)
[2018-05-07 09:15] VITALS: BP 140/89
[2018-05-07] MEDS: ROCEPHIN/NS 1 GM/50 ML 1 GM/50 ML BAG IV SCH (10:55)
[2018-05-07] MEDS: HumaLOG SUB-Q SCH ×3 (10:56→18:30)
[2018-05-07] MEDS: ASPIRIN PO SCH (10:57)
[2018-05-07] MEDS: FEOSOL PO SCH (10:57)
[2018-05-07] MEDS: FOLVITE PO SCH (10:57)
--- NOTE | 2018-05-07 11:14 | Progress Note ---
Assessment and Plan - Patient Problems (1) Acute kidney injury Current Visit: Yes Status: Acute Plan to address problem: suspect SINTIA secondary to pre-renal azotemia in the setting of UTI/hypoglycemia/bradycardia. UA negative for hematuria/proteinuria, I doubt acute glomerular injury. renal function improving with IVF. cont supportive care for SINTIA avoid nephrotoxins, NSAIDs, IV contrast (2) Altered mental status Current Visit: Yes Status: Acute Plan to address problem: in the setting of UTI/hypoglycemia. CT head without acute findings. improved with correction of hypoglycemia (3) Bradycardia Current Visit: Yes Status: Acute Plan to address problem: follow cardiology recs (4) UTI (urinary tract infection) Current Visit: Yes Status: Acute Plan to address problem: ABX treatment with ceftriaxone, no renal adjustment needed (5) Type 2 diabetes mellitus with diabetic chronic kidney disease Current Visit: Yes Status: Acute Plan to address problem: glucose control as per primary attending (6) Hypertensive chronic kidney disease with stage 1 through stage 4 chronic kidney disease, or unspecified chronic kidney disease Current Visit: Yes Status: Acute Plan to address problem: BP borderline low, hold BP meds and cont IV NS (7) Chronic kidney disease, stage 4 (severe) Current Visit: Yes Status: Acute (8) Hypoglycemia Current Visit: Yes Status: Acute Plan to address problem: cont D5NS Subjective Date of service: 05/07/18 Principal diagnosis: SINTIA on CKD Interval history: Pt awake, alert, in NAD Objective - Vital Signs Vital signs: Vital Signs - 12hr 05/07/18 05/07/18 05/07/18 00:26 00:28 04:54 Temperature 98.1 F 98.1 F Pulse Rate 70 72 74 Respiratory 20 14 18 Rate Blood Pressure 157/89 125/102 O2 Sat by Pulse 97 98 98 Oximetry 05/07/18 08:12 Temperature 98.0 F Pulse Rate 69 Respiratory 20 Rate Blood Pressure 140/89 O2 Sat by Pulse 98 Oximetry - General Appearance General appearance: well-developed, well-nourished, appears stated age EENT: ATNC, PERRL, mucous membranes moist Neck: no JVD Respiratory: Present: Clear to Ascultation Cardiology: regular, S1S2 Gastrointestinal: normoactive bowel sounds Integumentary: no rash, other (no edema ) Neurologic: no focal deficit, alert and oriented x3, strength 5/5, CN 3-12 intact Psychiatric: mood/affect appropriate, cooperative - Lab 05/06/18 07:36 05/06/18 07:36 Most recent lab results Calcium 8.6 mg/dL (8.4-10.2) 05/06/18 07:36 Magnesium 2.70 mg/dL (1.7-2.3) H 05/04/18 Unknown Urine Creatinine 102.7 mg/dL (0.1-20.0) H 05/05/18 18:40 Urine Sodium 29 mmol/L 05/05/18 18:40 Urine Total Protein 25 mg/dL (5-11.8) H 05/05/18 18:40 Medications & Allergies - Medications Allergies/Adverse Reactions: Allergies ciprofloxacin [From Cipro] Allergy (Verified 05/04/18 03:40) Unknown prazosin [From Minipress] Allergy (Verified 05/04/18 03:40) Unknown Home Medications: Home Medications Medication Instructions Recorded Confirmed Last Taken Type Ascorbic Acid [Vitamin C] 500 mg PO DAILY 05/04/18 05/04/18 Unknown History Aspirin [Aspirin BABY CHEW TAB] 81 mg PO QDAY 05/04/18 05/04/18 Unknown History AtorvaSTATin [Lipitor] 20 mg PO QHS 05/04/18 05/04/18 Unknown History Calcitriol [Rocaltrol] 0.25 mcg PO DAILY 05/04/18 05/04/18 Unknown History Carvedilol [Coreg] 12.5 mg PO BIDWM 05/04/18 05/04/18 Unknown History Citalopram Hydrobromide [Celexa] 40 mg PO QDAY 05/04/18 05/04/18 Unknown History Ergocalciferol [Vitamin D2] 1 cap PO QWEEK 05/04/18 05/04/18 Unknown History Ferrous Sulfate [Iron] 325 mg PO QAM 05/04/18 05/04/18 Unknown History Folic Acid [Folvite] 1 mg PO QDAY 05/04/18 05/04/18 Unknown History Furosemide [Lasix] 60 mg PO BID 05/04/18 05/04/18 Unknown History Hydrocortisone [Cortef TAB] 20 mg PO DAILY 05/04/18 05/04/18 Unknown History Lispro Insulin [Humalog] 1 dose SUB-Q ACHS 05/04/18 05/04/18 Unknown History Multivitamin Tab W-MINERAL 1 each PO DAILY 05/04/18 05/04/18 Unknown History [Multiple Vitamin/Mineral (Theragran M)] OLANZapine [Zyprexa] 5 mg PO QPM 05/04/18 05/04/18 Unknown History OLANzapine ZYDIS [ZyPREXA Zydis] 5 mg PO DAILY 05/04/18 05/04/18 Unknown History Potassium Chloride [Klor-Con 10] 20 meq PO QDAY 05/04/18 05/04/18 Unknown History Quetiapine Fumarate [Seroquel] 300 mg PO QPM 05/04/18 05/04/18 Unknown History amLODIPine [Norvasc] 10 mg PO DAILY 05/04/18 05/04/18 Unknown History glipiZIDE [Glipizide] 5 mg PO BID 05/04/18 05/04/18 Unknown History traZODone [Desyrel] 50 mg PO QHS 05/04/18 05/04/18 Unknown History Active Medications: Generic Name Dose Route Start Last Admin Trade Name Freq PRN Reason Stop Dose Admin Aspirin 325 mg 05/04/18 10:00 05/07/18 10:57 Aspirin PO 325 mg QDAY DARRELL Administration Atorvastatin Calcium 40 mg 05/04/18 22:00 05/06/18 21:22 Lipitor PO 40 mg QHS DARRELL Administration Dextrose 50 ml 05/06/18 05:32 D50w (25gm) Syringe IV PRN PRN Hypoglycemia Ergocalciferol 50,000 unit 05/11/18 10:00 Vitamin D2 PO Tu DARRELL Ferrous Sulfate 325 mg 05/05/18 10:00 05/07/18 10:57 Feosol PO 325 mg QAM DARRELL Administration Folic Acid 1 mg 05/05/18 10:00 05/07/18 10:57 Folvite PO 1 mg QDAY DARRELL Administration Heparin Sodium (Porcine) 5,000 unit 05/05/18 14:00 05/07/18 05:29 Heparin SUB-Q 5,000 unit Q8HR DARRELL Administration Hydrocortisone Acetate 5 mg 05/07/18 11:30 Cortef PO Q12HR DARRELL Ceftriaxone Sodium 1 gm in 50 mls @ 100 mls/hr 05/06/18 22:00 05/07/18 10:55 Rocephin/Ns 1 Gm/50 Ml IV 100 mls/hr Q12HR DARRELL Administration Protocol Insulin Glargine 10 units 05/05/18 22:00 05/06/18 21:26 Lantus SUB-Q 10 units QHS DARRELL Administration Insulin Human Lispro 0 unit 05/06/18 07:30 05/07/18 10:56 Humalog SUB-Q 1 unit ACHS DARRELL Administration Protocol Levothyroxine Sodium 75 mcg 05/06/18 06:00 05/07/18 05:31 Synthroid PO 75 mcg DAILY@0600 DARRELL Administration
[2018-05-07] MEDS ORDERED: CORTEF PO SCH (11:30)
--- NOTE | 2018-05-07 12:53 | Progress Note ---
Assessment and Plan Altered mental status Sinus bradycardia Severe hypothyroidism Hypoglycemia Recurrent episodes of syncope Pituitary tumor s/p multiple brain surgery and radiation therapy Acute on chronic renal failure UTI with sepsis Elevated serum troponin - continue supplemental oxygen as needed to keep O2 sats > 90% - continue fall precautions - changed BIPAP to prn re: head injuries post fall (CT brain negative) - needs outpatient PSG - continue thyroid replacement therapy - PT/OT as tolerated - fall precautions - continue Rocephin for E.Coli UTI - ACS w/up ongoing per cardiology (loop recorder) - to f/up with neurologist outpatient re: possible pituitary adenome regrowth - GI & VTE prophylaxis - continue other care per attending ..... re-evaluate in am & prn Subjective Date of service: 05/07/18 Principal diagnosis: AMS; Sinus bradycardia; Severe hypothyroidism; Hypoglycemia; Syncope Interval history: Patient is seen today for: Altered mental status; Sinus bradycardia; Severe h ypothyroidism; Hypoglycemia; Recurrent episodes of syncope Seen and examined at bedside; 24hour events reviewed; nursing and respiratory care staff consulted; no adverse overnight events reported to me; resting peacefully in bed; no N/V/F/C; no new syncopal episodes Objective Vital Signs - 12hr 05/07/18 05/07/18 04:54 08:12 Temperature 98.1 F 98.0 F Pulse Rate 74 69 Respiratory 18 20 Rate Blood Pressure 125/102 140/89 O2 Sat by Pulse 98 98 Oximetry Constitutional: no acute distress, alert, other (elderly looking AAF, normocephalic with mildly increased respiratory effort at rest) Eyes: non-icteric, other (erythematous left orbital region / eyelids s/p prior fall) ENT: oropharynx moist Neck: supple, no lymphadenopathy, no JVD, other (large neck circumference) Effort: mildly labored Ascultation: Bilateral: diminished breath sounds, rhonchi (scant in posterior bases) Percussion: Bilateral: not dull Cardiovascular: regular rate and rhythm Gastrointestinal: normoactive bowel sounds, soft, non-tender, non-distended Integumentary: normal Extremities: no cyanosis, pink and warm, no ischemia or petechiae, edema (trace') Neurologic: non-focal exam (grossly), pupils equal and round, CN II-XII normal, other (? pleasantly demented) Psychiatric: mood appropriate, affect normal CBC and BMP: 05/07/18 13:31 05/07/18 13:31 ABG, PT/INR, D-dimer: ABG POC ABG pH 7.307 (7.35-7.45) L 05/04/18 11:56 POC ABG pCO2 53.9 (35-45) H 05/04/18 11:56 POC ABG pO2 86 (80-105) 05/04/18 11:56 POC ABG HCO3 27.0 05/04/18 11:56 POC ABG Total CO2 29 05/04/18 11:56 POC ABG O2 Sat 95 05/04/18 11:56 PT/INR, D-dimer PT 15.7 Sec. (12.2-14.9) H 05/04/18 04:07 INR 1.17 (0.87-1.13) H 05/04/18 04:07 Abnormal lab findings: Abnormal Labs 05/04/18 05/04/18 05/04/18 04:01 04:07 04:07 WBC RBC 3.22 L Hgb 9.4 L Hct 28.7 L RDW 17.0 H Seg Neuts % (Manual) 77.0 H Lymphocytes # (Manual) 1.1 L PT 15.7 H INR 1.17 H APTT 38.2 H POC ABG pH 7.320 L POC ABG pCO2 55.4 H Potassium BUN Creatinine Glucose POC Glucose Magnesium Alkaline Phosphatase Troponin T Albumin HDL Cholesterol TSH Free T4 Urine WBC (Auto) Urine Creatinine Urine Total Protein 05/04/18 05/04/18 05/04/18 04:07 04:07 05:21 WBC RBC Hgb Hct RDW Seg Neuts % (Manual) Lymphocytes # (Manual) PT INR APTT POC ABG pH POC ABG pCO2 Potassium BUN 71 H Creatinine 4.3 H Glucose 124 H POC Glucose Magnesium Alkaline Phosphatase 202 H Troponin T 0.093 H Albumin 2.9 L HDL Cholesterol TSH Free T4 Urine WBC (Auto) 64.0 H Urine Creatinine Urine Total Protein 05/04/18 05/04/18 05/04/18 05:50 11:56 12:30 WBC RBC Hgb Hct RDW Seg Neuts % (Manual) Lymphocytes # (Manual) PT INR APTT POC ABG pH 7.307 L POC ABG pCO2 53.9 H Potassium BUN Creatinine Glucose POC Glucose Magnesium Alkaline Phosphatase Troponin T 0.072 H D 0.074 H Albumin HDL Cholesterol 33 L TSH Free T4 Urine WBC (Auto) Urine Creatinine Urine Total Protein 05/04/18 05/04/18 05/04/18 12:30 12:30 17:25 WBC RBC Hgb Hct RDW Seg Neuts % (Manual) Lymphocytes # (Manual) PT INR APTT POC ABG pH POC ABG pCO2 Potassium BUN Creatinine Glucose POC Glucose Magnesium Alkaline Phosphatase Troponin T 0.061 H Albumin HDL Cholesterol TSH 9.000 H Free T4 < 0.10 L Urine WBC (Auto) Urine Creatinine Urine Total Protein 05/04/18 05/05/18 05/05/18 Unknown 00:47 01:56 WBC RBC Hgb Hct RDW Seg Neuts % (Manual) Lymphocytes # (Manual) PT INR APTT POC ABG pH POC ABG pCO2 Potassium BUN Creatinine Glucose POC Glucose 306 H Magnesium 2.70 H Alkaline Phosphatase Troponin T 0.062 H Albumin HDL Cholesterol TSH Free T4 Urine WBC (Auto) Urine Creatinine Urine Total Protein 05/05/18 05/05/18 05/05/18 05:00 06:00 12:04 WBC RBC Hgb Hct RDW Seg Neuts % (Manual) Lymphocytes # (Manual) PT INR APTT POC ABG pH POC ABG pCO2 Potassium BUN Creatinine Glucose POC Glucose 299 H 261 H Magnesium Alkaline Phosphatase Troponin T 0.053 H Albumin HDL Cholesterol TSH Free T4 Urine WBC (Auto) Urine Creatinine Urine Total Protein 05/05/18 05/05/18 05/05/18 15:17 18:40 22:43 WBC RBC Hgb Hct RDW Seg Neuts % (Manual) Lymphocytes # (Manual) PT INR APTT POC ABG pH POC ABG pCO2 Potassium 5.1 H BUN 56 H Creatinine 3.5 H Glucose 289 H POC Glucose 151 H Magnesium Alkaline Phosphatase Troponin T Albumin HDL Cholesterol TSH Free T4 Urine WBC (Auto) Urine Creatinine 102.7 H Urine Total Protein 25 H 05/06/18 05/06/18 05/06/18 05:34 07:36 07:36 WBC 13.8 H RBC 3.30 L Hgb 9.5 L Hct 29.3 L RDW 17.1 H Seg Neuts % (Manual) Lymphocytes # (Manual) PT INR APTT POC ABG pH POC ABG pCO2 Potassium BUN 54 H Creatinine 3.3 H Glucose 178 H POC Glucose 208 H Magnesium Alkaline Phosphatase Troponin T Albumin HDL Cholesterol TSH Free T4 Urine WBC (Auto) Urine Creatinine Urine Total Protein 05/06/18 05/06/18 05/06/18 10:06 17:26 20:41 WBC RBC Hgb Hct RDW Seg Neuts % (Manual) Lymphocytes # (Manual) PT INR APTT POC ABG pH POC ABG pCO2 Potassium BUN Creatinine Glucose POC Glucose 192 H 167 H 178 H Magnesium Alkaline Phosphatase Troponin T Albumin HDL Cholesterol TSH Free T4 Urine WBC (Auto) Urine Creatinine Urine Total Protein 05/07/18 09:58 WBC RBC Hgb Hct RDW Seg Neuts % (Manual) Lymphocytes # (Manual) PT INR APTT POC ABG pH POC ABG pCO2 Potassium BUN Creatinine Glucose POC Glucose 376 H Magnesium Alkaline Phosphatase Troponin T Albumin HDL Cholesterol TSH Free T4 Urine WBC (Auto) Urine Creatinine Urine Total Protein
--- NOTE | 2018-05-07 13:22 | Discharge Summary ---
Providers - Providers Date of Admission: 05/04/18 06:05 Date of discharge: 05/07/18 Attending physician: JOSIE SIERRA 05/04/18 09:24 Consult to Physician [CONS] Stat Comment: DR OSBORN NOTIFIED [id number] Consulting Provider: ZULEMA OSBORN Physician Instructions: Reason For Exam: CCU admission 05/04/18 16:34 Consult to Physician [CONS] Routine Comment: Consulting Provider: EDEN JACKSON Physician Instructions: Reason For Exam: SINTIA on CKD 05/05/18 10:38 Speech Therapy Evaluation and Treat [CONS] Routine Reason For Exam: aspiration 05/05/18 13:37 Physical Therapy Evaluation and Treat [CONS] Routine Comment: Reason For Exam: placement 05/06/18 05:32 Consult to Dietitian/Nutrition [CONS] Routine Physician Instructions: Reason For Exam: Reason for Consult: Diet education Primary care physician: ROSALINA IRWIN Hospitalization Reason for admission: AMS Condition: Stable Pertinent studies: CXR: Cardiomegaly. Localized increased markings in the right upper lobe. Whether this is on acute or chronic basis is uncertain.. Head CT: There is no acute hemorrhage, edema, mass effect or midline shift. . There is an old left temporal craniotomy defect. . There is central and cortical atrophy appropriate for the patient's age. . There is an isodense rounded mass in the suprasellar region measuring 2.5 x 2 cm. This could be a pituitary adenoma, a meningioma or other intracranial mass lesion. Aneurysm not excluded. Correlation with contrast-enhanced MRI suggested. . No evidence of hemorrhage, acute infarction or mass . There is chronic deep white matter ischemic gliosis. 2d echo: Ef 45-50% Hospital course: Patient is a 62 year old woman from [place] with h/o dilated nonischemic cardiomyopathy, pituitary tumor s/p multiple surgical procedure including craniotomy at [facility] by victorino, diabetes mellitus type 2, hypertension, hyperlipidemia, chronic renal disease, was brought to the ER by EMS after she was found on the floor unresponsive. On EMS arrival she was said to be hypoglycemic with a blood sugar of 41. She was also noted with significant bradycardia, rate in the low 40s, and was given atropine. based on home medications list she is taking carvediolol 12.5mg twice a day. A 12 lead ECG shows sinus rhythm with a left bundle branch block. Chest x-ray shows cardiomegaly with pulmonary edema. Initial labs shows a creatinine of 4.3, TSH 9, elevated trop, and UA suggestive for UTI. Patient was admitted to ICU for further evaluation and management. Head CT scan reports showed isodense rounded mass in the suprasellar region measuring 2.5 x 2 cm. This could be regrowth of her known pituitary adenoma, discussed the finding with her daughter and she stated they will f/u with patient's neurologist at [facility]. Discharge Diagnosis and management: Acute metabolic encephalopathy/Altered mental status - reason for admission - likely from hypoglycemia, resolved Acute hypercapnic respiratory failure, resolved _ Present on admission, was placed on Ventimask then weaned off to N/C, was on RA before discharge - due to pulmonary edema could be developed from worsening renal function and also from alteration of mental status DM type 2 - covered with SSI only if needed Sinus bradycardia, hemodynamically stable - no need for intervention, per cardiology - held BB and non-dihydropyridine CCB (patient was on coreg at the [facility]) - likely from severe hypothyroidism, placed on synthroid - symptom resolved on discharge Severe hypothyroidosm - placed on iv synthroid with steroid dose, then transitioned to PO Recurrent episodes of syncope - could be from pituitary mass and hypoglycemic episodes - Patient has a loop recorder placed, will f/u with neurologist and naval marine engineer outpt - cardiology evaluated the patient and recommended outpt followup Pituitary tumor s/p multiple brain surgery and radiation therapy - CT head obtained, showed isodense rounded mass in the suprasellar region measuring 2.5 x 2 cm. This could be regrowth of her known pituitary adenoma, discussed the finding with her daughter and she stated they will f/u with patient's neurologist at [facility] Acute on chronic renal failure - likely from vasomotor nephropathy - monitored BMP, plant utility person recommended outpt followup UTI with sepsis - UA positive for UTI with worsening renal function and alteration of mental status - placed on abx, cx growing E. coli - will complete the course with ciprofloxacin Elevated troponin/NSTEMI 2 ?? - developed in light of worsening renal function - trended trop, 2d echo showed 45-50% EF - cont aspirin, statin -Cardiology consulted and recommended medical MX Dvt Px, heparin Physical exam GENERAL: well-developed obese female sitting on bed HEENT: Normocephalic. Atraumatic. No conjunctival congestion or icterus. Patient has dry mucous membranes. left eye closed and unable to open eyelid NECK: Supple. Trachea midline. CHEST/LUNGS: Clear to auscultated bilaterally, breathing nonlabored. No wheezes crackles or rhonchi. HEART/CARDIOVASCULAR: Bradycardic. S1 and S2 positive. ABDOMEN: Abdomen is soft, nontender. Patient has normal bowel sounds. SKIN: There is no rash. Warm and dry. NEURO: Follow command. MUSCULOSKELETAL: No joint effusion or tenderness. EXTRIMITY: No edema, no cyanosis or clubbing. PSYCH: cooperative Disposition: DC/TX-03 [facility] CERT Time spent for discharge: 34 minutes Core Measure Documentation - Palliative Care Palliative Care/ Comfort Measures: Not Applicable - Core Measures Any of the following diagnoses?: none Exam - Constitutional Vitals: Temp Pulse Resp BP Pulse Ox 98.0 F 69 20 140/89 98 05/07/18 08:12 05/07/18 08:12 05/07/18 08:12 05/07/18 08:12 05/07/18 08:12 Plan Activity: fall precautions Weight Bearing Status: Non-Weight Bearing Diet: diabetic, renal Additional Instructions: f/u with Dr Jackson in 2-3 weeks. f/u with neurologist to f/u on pituitary tumor Follow up with: ROSALINA IRWIN MD [Primary Care Provider] - 3-5 Days Prescriptions: Amoxicillin/Potassium Clav [Augmentin 875-125 Tablet] 1 each PO BID #6 tablet Lispro Insulin [Humalog] See Protocol SUB-Q ACHS #30 units Lispro Insulin [Humalog] See Protocol SQ QACHS 30 Days vial Levothyroxine [Synthroid] 75 mcg PO DAILY@0600 #30 tablet
[2018-05-07 14:04] LABS: Hematocrit 30.7 % (30.3-42.9); Hemoglobin 9.9 gm/dl (10.1-14.3); Mean Corpuscular HGB Conc 32 % (30-34); Mean Corpuscular Volume 91 fl (79-97); Platelet Count 288 K/mm3 (140-440); Red Blood Count 3.37 M/mm3 (3.65-5.03); Red Cell Distribution Width 17.3 % (13.2-15.2)
[2018-05-07 14:25] LABS: Calcium 8.9 mg/dL (8.4-10.2)
[2018-05-11] MEDS ORDERED: VITAMIN D2 PO SCH ×2 (10:00)
== END 2018-05-07 20:30 | DRG 871 ==
LOC: ED 03:30 → 4A 06:05 → CC1 08:19 → 4A 05-05 20:47
PROVIDERS: ADMIT Internal Medicine; ATTEND Internal Medicine
PROC: 4A033R1 Measurement of Arterial Saturation, Peripheral, Percutaneous Approach (ICD-10-PCS; principal; 2018-05-04)
PROC: 5A09357 Assistance with Respiratory Ventilation, Less than 24 Consecutive Hours, Continuous Positive Airway Pressure (ICD-10-PCS; 2018-05-04)
PROC: 5A09357 Assistance with Respiratory Ventilation, Less than 24 Consecutive Hours, Continuous Positive Airway Pressure (ICD-10-PCS; 2018-05-07)
DX: A41.9 Sepsis, unspecified organism (principal); I21.A1 Myocardial infarction type 2; G93.41 Metabolic encephalopathy; J96.02 Acute respiratory failure with hypercapnia; N17.0 Acute kidney failure with tubular necrosis; I42.0 Dilated cardiomyopathy; N39.0 Urinary tract infection, site not specified; N18.4 Chronic kidney disease, stage 4 (severe); R00.1 Bradycardia, unspecified; I12.9 Hypertensive chronic kidney disease with stage 1 through stage 4 chronic kidney disease, or unspecified chronic kidney disease; E11.22 Type 2 diabetes mellitus with diabetic chronic kidney disease; E11.649 Type 2 diabetes mellitus with hypoglycemia without coma; I44.7 Left bundle-branch block, unspecified; E03.9 Hypothyroidism, unspecified; Z87.891 Personal history of nicotine dependence; Z82.49 Family history of ischemic heart disease and other diseases of the circulatory system; Z83.3 Family history of diabetes mellitus; Z79.82 Long term (current) use of aspirin; Z79.899 Other long term (current) drug therapy
CPT/HCPCS: 36415; 36600; 70450; 71045; 80048; 80053; 80061; 80307; 81001; 82140; 82570; 82803; 82962; 83735; 84156; 84300; 84439; 84443; 84484; 85007; 85025; 85027; 85610; 85730; 87040; 87076; 87086; 87186; 93005; 93010; 93306; 94660; G0378; A9270-GY; J0461; J0692; J0696; J1644; J1720; J1815; J2310; J2930; J7030; J7042